=== PATIENT | male | born 1955 | race Caucasian/White ===

== ENCOUNTER 2022-12-31 18:54 | Inpatient (IN) | payer MEDICARE, MEDICAID, SELFPAY ==
[2022-12-31] VITALS (11 sets, daily range): BP systolic 101–134; BP diastolic 50–93; PULSE 57–134; RESP 16–27; TEMP 37.3–39.5; O2SAT 92–97; BMI 30.8; BMI 33.3
--- NOTE | 2022-12-31 18:58 | XR_ITS ---
PROCEDURE INFORMATION: Exam: XR Chest Exam date and time: 12/31/2022 7:34 PM Age: 67 years old Clinical indication: Other: AMS; Additional info: Altered mental status TECHNIQUE: Imaging protocol: Radiologic exam of the chest. Views: 1 view. COMPARISON: No relevant prior studies available. FINDINGS: Lungs: Unremarkable. No consolidation. Pleural spaces: Unremarkable. No pleural effusion. No pneumothorax. Heart/Mediastinum: Unremarkable. No cardiomegaly. Bones/joints: Unremarkable. IMPRESSION: No acute findings.
--- NOTE | 2022-12-31 18:59 | CT_ITS ---
PROCEDURE INFORMATION: Exam: CT Abdomen And Pelvis With Contrast Exam date and time: 12/31/2022 7:45 PM Age: 67 years old Clinical indication: Other: Distension; Additional info: Abdominal distension TECHNIQUE: Imaging protocol: Computed tomography of the abdomen and pelvis with contrast. Radiation optimization: All CT scans at this facility use at least one of these dose optimization techniques: automated exposure control; mA and/or kV adjustment per patient size (includes targeted exams where dose is matched to clinical indication); or iterative reconstruction. Contrast material: ISOVUE; Contrast volume: 75 ml; Contrast route: IV; REPORTING DATA: Count of CT and Cardiac NM exams in prior 12 months: This patient has received 0 known CTs and 0 known cardiac nuclear medicine studies in the 12 months prior to the current study. COMPARISON: CR XR CHEST PORTABLE 12/31/2022 7:34 PM FINDINGS: Lungs: Airspace opacities in the included left lower lobe. Small somewhat nodular opacity in the right middle lobe. Bilateral dependent atelectasis. Liver: Liver is normal. No lesions. Gallbladder and bile ducts: Gallbladder is normal. No calcified stones. No ductal dilatation. Pancreas: Moderately atrophic pancreas. Pancreas is otherwise unremarkable. No ductal dilatation. Spleen: Spleen is normal. Adrenal glands: Adrenal glands are normal. No mass. Kidneys and ureters: Kidneys are normal. No renal stones seen. No hydronephrosis or hydroureter. Stomach and bowel: No evidence of bowel obstruction or acute bowel abnormality. Colonic diverticulosis without evidence of diverticulitis. Appendix: Status post appendectomy. Intraperitoneal space: No free air. No significant fluid collection. Vasculature: No acute abnormality. Aortoiliac atherosclerotic disease. No AAA. Lymph nodes: No enlarged lymph nodes. Urinary bladder: Urinary bladder is unremarkable for degree of distention. Reproductive: Mild prostate enlargement. Bones/joints: No acute osseous abnormality. Postsurgical changes status post posterior spinal fusion from T11 through S1 with discectomy at L4-L5 and L5-S1 with laminectomies. Status post fusion of the SI joints. Advanced DJD of the right hip and mild/moderate DJD of the left hip. Soft tissues: Increased soft tissue density and scattered ill-defined fluid within the posterior soft tissues of the lower thoracic and lumbar spine with no discrete collection. Small fat containing umbilical hernia. IMPRESSION: 1. Opacities in the left lower lobe most compatible with pneumonia. Small somewhat nodular opacity in the right middle lobe may be due to atelectasis versus infection. Consider follow-up CT chest following treatment to assess for resolution and ensure no underlying lung lesion. 2. Colonic diverticulosis. No acute bowel abnormality. 3. Aortoiliac atherosclerotic disease. No AAA. 4. Postsurgical changes of the spine and SI joints as above. Increased soft tissue density and scattered ill-defined fluid within the posterior soft tissues of the lower thoracic and lumbar spine with no discrete collection. 5. Enlarged prostate. 6. Other chronic and incidental findings as above.
--- NOTE | 2022-12-31 19:00 | ECG_ITS ---
APPROVED REPORT Exam: Resting ECG HR:133 bpm ECG Measurements Heart Rate 133 AXES TX 151 P 44 QRSd 92 QRS 24 QT 333 T 58 QTc 411 Conclusion SINUS TACHYCARDIA WITH OCCASIONAL VENTRICULAR PREMATURE COMPLEXES LOW QRS VOLTAGE IN PRECORDIAL LEADS [QRS DEFLECTION < 1.0 mV IN CHEST LEADS] NONSPECIFIC T-WAVE ABNORMALITY ABNORMAL RHYTHM ECG UNCONFIRMED REPORT Electronically signed by : Jet Reynaga MD 01/01/2023 15:01:31
--- NOTE | 2022-12-31 19:07 | HMH.EDGENADL ---
Discharge Plan Disposition Patient Disposition: Still a Patient Prescriptions Prescriptions: No Action alprazolam 1 mg tablet 1 mg PO BIDP PRN (Reason: Anxiety) Label Comments: TAKE 1 TABLET BY MOUTH TWICE DAILY NEEDED. FILL 12/11 potassium chloride 10 mEq tablet extended release 10 meq PO DAILY Label Comments: TAKE 1 TABLET BY MOUTH ONCE A DAY. oxycodone 15 mg tablet 15 mg PO Q6HP PRN (Reason: Breakthrough Pain) Label Comments: TAKE 1 TABLET BY MOUTH EVERY 6 HOURS NEEDED FOR BREAKTHROUGH PAIN. FILL 12/11 tamsulosin 0.4 mg capsule 0.4 mg PO HS Label Comments: TAKE (1) CAPSULE BY MOUTH ONCE A DAY. pantoprazole 40 mg tablet,delayed release (DR/EC) 40 mg PO DAILY Label Comments: TAKE 1 TABLET BY MOUTH ONCE A DAY. promethazine 25 mg tablet 25 mg PO DAILYP PRN (Reason: Nausea) Label Comments: TAKE 1 TABLET BY MOUTH ONCE A DAY NEEDED FOR NAUSEA furosemide 20 mg tablet 20 mg PO DAILY Label Comments: TAKE 1 TABLET BY MOUTH ONCE A DAY. metoprolol succinate 25 mg tablet extended release 24 hr 25 mg PO DAILY Label Comments: TAKE 1 TABLET BY MOUTH ONCE A DAY. albuterol sulfate 90 mcg/actuation HFA aerosol inhaler 2 puff INHALATION Q4-6H PRN (Reason: Breathing Problems) Label Comments: INHALE 2 PUFFS EVERY 4-6 HOURS pregabalin 100 mg capsule 100 mg PO TID Label Comments: TAKE (1) CAPSULE BY MOUTH TWICE DAILY FOR 3 DAYS THEN 1 CAPSULE THREE TIMES A DAY FILL 12/11 diclofenac sodium 1 % gel 1 g TOPICAL NEEDED PRN (Reason: Arthritis) Label Comments: APPLY TO AFFECTED AREAS 2-3 TIMES A DAY NEEDED Eliquis 5 mg tablet 5 mg PO BID Label Comments: TAKE ONE TABLET BY MOUTH 2 TIMES DAILY. oxycodone [OxyContin] 40 mg tablet,oral only,ext.rel.12 hr 40 mg PO BID Label Comments: TAKE 1 TABLET BY MOUTH TWICE DAILY FILL 12/11 Clinical Impressions Clinical Impression: Altered mental status Instructions Patient Instructions: DI for Altered Mental Status Discharge ED Provider: Juan Jose Ortiz General Adult HPI General Chief complaint: Altered Mental Status Stated complaint: AMS Time Seen by Provider: 12/31/22 19:00 History of Present Illness HPI narrative: 67-year-old male presents from home with tachycardia and fever. He says he has had mild cough for the last week has been mildly short of air. His daughter noticed that he was being more confused today, he had been outside working in the garden all day prior to this. He does have mild abdominal distention and abdominal pain. No dysuria or hematuria no diarrhea or nausea or vomiting. Related Data Home Medications Medication Instructions Recorded Confirmed albuterol sulfate 90 mcg/actuation 2 puff inhalation Q4-6H PRN 12/31/22 12/31/22 aerosol inhaler Breathing Problems alprazolam 1 mg tablet 1 mg PO BIDP PRN Anxiety 12/31/22 12/31/22 apixaban 5 mg tablet (Eliquis) 5 mg PO BID Blood thinner 12/31/22 12/31/22 diclofenac sodium 1 % topical gel 1 g topical NEEDED PRN Arthritis 12/31/22 12/31/22 furosemide 20 mg tablet 20 mg PO DAILY Fluid 12/31/22 12/31/22 metoprolol succinate 25 mg 25 mg PO DAILY High blood pressure 12/31/22 12/31/22 tablet,extended release 24 hr oxycodone 15 mg tablet 15 mg PO Q6HP PRN Breakthrough Pain 12/31/22 12/31/22 oxycodone 40 mg tablet,crush 40 mg PO BID Pain 12/31/22 12/31/22 resistant,extended release 12 hr (OxyContin) pantoprazole 40 mg tablet,delayed 40 mg PO DAILY Acid reflux 12/31/22 12/31/22 release potassium chloride 10 mEq 10 meq PO DAILY Supplement 12/31/22 12/31/22 tablet,extended release pregabalin 100 mg capsule 100 mg PO TID Pain 12/31/22 12/31/22 promethazine 25 mg tablet 25 mg PO DAILYP PRN Nausea 12/31/22 12/31/22 tamsulosin 0.4 mg capsule 0.4 mg PO HS Prostate 12/31/22 12/31/22 Allergies Allergy/AdvReac Type Severity Reaction Status Date / Ti
[2022-12-31 19:13] LABS: VBG Base Excess 1.1 mmol/L (-2.4-2.3); VBG Oxygen Saturation 53.4 % (50-70); VBG PCO2 43.1 mmol/L (35-51); VBG PO2 27.1 mmol/L (28-40); VBG Total CO2 27.3 mmol/L (23-27)
[2022-12-31 19:25] LABS: Basophils % 0.3 % (0.1-2.0); Eosinophils # 0.1 K/mm3 (0.0-0.4); Eosinophils % 1.2 % (0.1-12.0); Hematocrit 44.5 % (42.0-52.0); Hemoglobin 14.9 g/dL (14.1-18.0); Lymphocytes # 0.7 K/mm3 (0.7-4.5); Lymphocytes % 6.6 % (10-50); Mean Corpuscular HGB Conc 33.4 g/dL (31.8-35.4); Mean Corpuscular Hemoglobin 30.5 pg (27.0-31.2); Mean Corpuscular Volume 91.3 fl (80-94); Mean Platelet Volume 8.1 fl (7.4-10.4); Monocytes # 0.4 K/mm3 (0.1-1.0); Monocytes % 3.9 % (1.7-9.3); Neutrophils # 9.2 K/mm3 (1.8-7.8); Neutrophils % 88.1 % (37.0-80.0); Platelet Count 282 K/mm3 (142-424); Red Blood Count 4.87 M/mm3 (4.60-6.20); Red Cell Distribution Width 14.4 % (11.5-17.5); White Blood Count 10.4 K/mm3 (4.8-10.8)
[2022-12-31 19:27] LABS: Coronavirus 19, PCR Not Detected (NotDetected); Influenza A, PCR Not Detected (NotDetected); Influenza B, PCR Not Detected (NotDetected)
[2022-12-31 19:27] LABS: MANUAL DIFFERENTIAL MANUAL DIFFERENTIAL (MANUAL DIFF)
[2022-12-31 19:30] LABS: Lipase 95 U/L (23-300)
[2022-12-31 19:31] LABS: Alanine Aminotransferase 38 U/L (12-78); Albumin Level 4.4 g/dl (3.5-5.0); Albumin/Globulin Ratio 1.3 (1.1-1.8); Alkaline Phosphatase 145 U/L (38-126); Anion Gap 19.4 mEq/L (5-15); Aspartate Amino Transferase 43 U/L (17-59); Bilirubin,Total 0.8 mg/dl (0.2-1.3); Blood Urea Nitrogen 15 mg/dl (9-20); Calcium 8.7 mg/dl (8.4-10.2); Carbon Dioxide 27 mmol/L (22.0-30.0); Chloride 95 mmol/L (98-107); Creatinine Clearance Estimated 90 mL/min (50-200); Estimated Glomerular Filt Rate 60 ml/min (>60); GFR (African American) 73 ML/MIN (>60); Globulin 3.3 g/dL (1.3-3.2); Glucose 128 mg/dl (74-100); Magnesium 1.6 mg/dl (1.6-2.3); Potassium 3.4 mmoL/L (3.5-5.1); Sodium 138 mmol/L (136-145); Total Protein,Serum 7.7 g/dl (6.3-8.2)
[2022-12-31 19:35] LABS: Lactic Acid 1.9 mmol/L (0.7-2.1)
--- NOTE | 2022-12-31 19:38 | PC.NURSE ---
Patient to CT
[2022-12-31 19:41] LABS: Eosinophils % 1 % (0-3); Lymphocytes % 15 % (10-50); Monocytes % 4 % (2-9); Neutrophils % 80 % (42-76); Nucleated Red Blood Cells 1; Platelet Estimate Normal; RBC Morphology Normal; Total Cells Counted 100
[2022-12-31 19:47] LABS: Troponin I < 0.01 ng/ml (0.00-0.034)
--- NOTE | 2022-12-31 19:50 | PC.NURSE ---
Back from CT
[2022-12-31 19:57] LABS: Microscopic, Urine URINE MICROSCOPIC (MICROSCOPIC)
[2022-12-31 20:01] LABS: Thyroid Stimulating Hormone 0.45 uIU/mL (0.465-4.68)
--- NOTE | 2022-12-31 20:14 | CT_ITS ---
PROCEDURE INFORMATION: Exam: CT Chest Without Contrast; Diagnostic Exam date and time: 12/31/2022 8:27 PM Age: 67 years old Clinical indication: Other: Sepsis TECHNIQUE: Imaging protocol: Diagnostic computed tomography of the chest without contrast. Radiation optimization: All CT scans at this facility use at least one of these dose optimization techniques: automated exposure control; mA and/or kV adjustment per patient size (includes targeted exams where dose is matched to clinical indication); or iterative reconstruction. REPORTING DATA: Count of CT and Cardiac NM exams in prior 12 months: This patient has received 0 known CTs and 0 known cardiac nuclear medicine studies in the 12 months prior to the current study. COMPARISON: CR XR CHEST PORTABLE 12/31/2022 7:34 PM FINDINGS: Lungs: Respiratory motion. Airspace opacities in the posterior and medial left lower lobe most compatible with pneumonia. Subsegmental/dependent atelectasis in the right lower lobe. Small somewhat nodular opacity in the medial right middle lobe. Small subpleural superior right lower lobe opacity likely reflects atelectasis. Pleural spaces: No pneumothorax. No pleural effusion. Heart: Heart size is normal. No pericardial effusion. Lymph nodes: Mildly enlarged subcarinal lymph node and a few additional upper normal mediastinal lymph nodes. No appreciable hilar adenopathy although evaluation is limited. There are small calcified hilar lymph nodes most compatible with prior granulomatous disease. Vasculature: Mild calcified aortic atherosclerosis with no aneurysm. Left aortic arch with aberrant right subclavian artery. Main pulmonary artery is mildly dilated measuring 3.3 cm in diameter. Diaphragm: Small sliding-type hiatal hernia. Bones/joints: No acute abnormality. Partially imaged posterior spinal fusion of the thoracolumbar spine. Soft tissues: Unremarkable. Other findings: No acute abnormality in the included upper abdomen. IMPRESSION: 1. Airspace opacities in the left lower lobe most compatible with pneumonia. Small somewhat nodular opacity in the medial right middle lobe could represent atelectasis versus infection. Recommend follow-up CT chest following treatment to ensure no underlying lesions. 2. Mild mediastinal adenopathy, likely reactive. This can be reassessed on follow-up imaging. 3. Mild calcified thoracic aortic atherosclerotic disease with no aneurysm. Left aortic arch with aberrant right subclavian artery. Mildly dilated main pulmonary artery suggesting there may be pulmonary arterial hypertension. 4. Small sliding-type hiatal hernia.
--- NOTE | 2022-12-31 20:20 | EXP.HP ---
History of Present Illness *Admission Date: 12/31/22 *Reason for visit:: Chief complaint: Fever *History of present illness: This is a 67-year-old male who presents to [facility] accompanied by his daughter Shanti Jimenez who assists with the history. She reports that her father and herself were working the garden this afternoon and he was doing more work than he typically does with his bad back. He started experiencing fever and nausea and got in the truck to cool off. Shanti reports that he has had a cough for about a week that has not resolved. The patient reports he became nauseous and they decided to go home. At home his nausea crescendoed and he threw up a couple of times. There was no associated diarrhea. He reports some left lower quadrant pain characterized as sharp and piercing and intermittent. He describes a colonoscopy in 2018 that was reported as normal. He reports no associated hematemesis, melena or hematochezia. His daughter reports that after throwing up he started talking out of his head. He became really hot. The patient reported feeling sick to my stomach. He took a Phenergan and it did not improve his symptomatology. He denied headache, seizures, loss of motor or sensory function. He reported to the emergency department for evaluation. In the ER he was tachycardic and tachypneic with fever. His laboratory evaluation identified a white blood cell count of 10.4 with normal hemoglobin and negative lactic acid and normal pH. His LFTs and lipase were normal. His creatinine was 1.2 and his magnesium 1.6. A CT of the abdomen identified diverticulosis but no evidence of diverticulitis. Chest imaging identified left lower lobe and right middle lobe pneumonia. He received IV fluid resuscitation for his sepsis presentation. Blood cultures were acquired and he was started on IV Zosyn and IV vancomycin. Currently he reports that he is tired but feeling better. His daughter Shanti at bedside endorses his improvement. 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 Hypertension Osteoarthritis of spine Paroxysmal atrial fibrillation Surgical History (Updated 12/31/22 @ 21:35 by Stef Barry MD) History of lumbar spinal fusion S/P appendectomy Social History (Updated 12/31/22 @ 19:46 by Juan Jose Ortiz MD) Smoking Status: Former smoker alcohol intake: never current occupational status: unemployed Travel in the last 8 weeks: None Review of Systems Review of Systems Review of systems:: pertinent systems reviewed and negative unless documented below Constitutional Constitutional: Reports chills, Reports fever(s), Denies headache(s), Reports poor appetite, Reports lethargy and Reports weakness Eyes Eyes: Denies loss of vision ENT Ears, Nose, Mouth, and Throat: Denies dizziness, Denies dysphagia and Denies headache(s) *Cardiovascular Cardiovascular: Denies chest pain, Denies chest pain at rest, Reports dyspnea, Reports dyspnea on exertion, Reports irregular heart rhythm and Reports palpitations *Respiratory Respiratory: Reports cough, Reports dyspnea, Reports dyspnea on exertion and Reports wheezing *Gastrointestinal Gastrointestinal: Denies diarrhea, Denies dysphagia, Denies hematochezia, Denies loose stools, Denies melena, Reports nausea and Reports vomiting *Genitourinary Genitourinary: Reports urinary frequency *Musculoskeletal Musculoskeletal: Denies abnormal gait and Reports back pain Integumentary/Breasts Skin/Breast: Denies rash *Neurologic Neurologic: Denies abnormal gait, Denies abnormal movements, Denies abnormal speech, Reports confusion, Denies dizziness, Denies lo
[2022-12-31 20:23] LABS: Appearance,Urine CLEAR (Clear); Bilirubin,Urine Negative (Negative); Blood, Urine TRACE-I (Negative); Color,Urine YELLOW (Yellow); Glucose,Urine (UA) Negative (Negative); Ketones,Urine Negative (Negative); Leukocyte Esterase,Urine Negative (Negative); Nitrate,Urine Negative (Negative); Protein,Urine Negative (Negative); Specific Gravity, Urine 1.015 (1.005-1.030)
--- NOTE | 2022-12-31 20:25 | PC.NURSE ---
Patient back to CT for inpatient CT orders
--- NOTE | 2022-12-31 20:30 | PC.NURSE ---
Attempted to call report, Nurse will call me back
[2022-12-31 20:33] LABS: Creatine Kinase 57 U/L (55-170)
[2022-12-31 20:35] LABS: RBC,Urine Occasional #/hpf (0-3)
--- NOTE | 2022-12-31 20:51 | PC.NURSE ---
Pt arrived to floor via stretcher @ 2044
[2022-12-31 21:01] LABS: Mycoplasma Pneumo IGM (Rapid) Non-Reactive (Non-Reactiv)
[2022-12-31 22:55] LABS: Troponin I < 0.01 ng/ml (0.00-0.034)
[2023-01-01] VITALS (15 sets, daily range): BP systolic 97–134; BP diastolic 53–74; PULSE 54–100; RESP 17–18; TEMP 36.7–37.6; O2SAT 90–96; BMI 33.5
[2023-01-01 01:48] LABS: Troponin I < 0.01 ng/ml (0.00-0.034)
--- NOTE | 2023-01-01 06:22 | ECG_ITS ---
APPROVED REPORT Exam: Resting ECG HR:99 bpm ECG Measurements Heart Rate 99 AXES CO 165 P 55 QRSd 100 QRS 34 QT 346 T 51 QTc 402 Conclusion SINUS RHYTHM WITH OCCASIONAL SUPRAVENTRICULAR PREMATURE COMPLEXES BORDERLINE ECG UNCONFIRMED REPORT Electronically signed by : Jet Reynaga MD 01/01/2023 15:00:23
[2023-01-01 06:48] LABS: Basophils # 0.1 K/mm3 (0-0.2); Basophils % 0.4 % (0.1-2.0); Eosinophils # 0.1 K/mm3 (0.0-0.4); Eosinophils % 0.4 % (0.1-12.0); Hematocrit 39.9 % (42.0-52.0); Hemoglobin 13.5 g/dL (14.1-18.0); Lymphocytes # 1.3 K/mm3 (0.7-4.5); Lymphocytes % 5.2 % (10-50); Mean Corpuscular HGB Conc 33.8 g/dL (31.8-35.4); Mean Corpuscular Hemoglobin 30.6 pg (27.0-31.2); Mean Corpuscular Volume 90.5 fl (80-94); Mean Platelet Volume 8.6 fl (7.4-10.4); Monocytes # 2.3 K/mm3 (0.1-1.0); Monocytes % 9.1 % (1.7-9.3); Neutrophils # 21.9 K/mm3 (1.8-7.8); Neutrophils % 84.9 % (37.0-80.0); Platelet Count 295 K/mm3 (142-424); Red Blood Count 4.41 M/mm3 (4.60-6.20); Red Cell Distribution Width 14.3 % (11.5-17.5); White Blood Count 25.8 K/mm3 (4.8-10.8)
[2023-01-01 06:54] LABS: MANUAL DIFFERENTIAL MANUAL DIFFERENTIAL (MANUAL DIFF)
[2023-01-01 06:56] LABS: Prothrombin Time 12.8 seconds (10.1-12.5)
[2023-01-01 07:14] LABS: Anion Gap 18.3 mEq/L (5-15); Blood Urea Nitrogen 15 mg/dl (9-20); Calcium 8.2 mg/dl (8.4-10.2); Carbon Dioxide 23 mmol/L (22.0-30.0); Chloride 100 mmol/L (98-107); Creatinine Clearance Estimated 107 mL/min (50-200); Estimated Glomerular Filt Rate 84 ml/min (>60); GFR (African American) 101 ML/MIN (>60); Glucose 124 mg/dl (74-100); Potassium 4.3 mmoL/L (3.5-5.1); Sodium 137 mmol/L (136-145)
[2023-01-01 07:30] LABS: Procalcitonin 6.57 ng/mL (0.0-2.0)
--- NOTE | 2023-01-01 07:56 | HMH.PHAINT1 ---
Pharmacy Intervention Comments: HOME MEDICATION LIST VERIFIED USING LIST FROM OUTPATIENT PHARMACY
--- NOTE | 2023-01-01 07:58 | EXP.PHA.CONS ---
Pharmacy Consult Date: 01/01/23 Time: 07:58 Referring provider: DR. BORDEN Reason for Consult:: VANCOMYCIN DOSING Allergies Allergy/AdvReac Type Severity Reaction Status Date / Time NSAIDS (Non-Steroidal Allergy Verified 12/31/22 19:10 Anti-Inflamma quetiapine [From Seroquel] Allergy Verified 12/31/22 19:10 Home Medications Medication Instructions Recorded Confirmed Type albuterol sulfate 90 mcg/actuation 2 puff inhalation Q4-6H PRN 12/31/22 12/31/22 History aerosol inhaler Breathing Problems alprazolam 1 mg tablet 1 mg PO BIDP PRN Anxiety 12/31/22 12/31/22 History apixaban 5 mg tablet (Eliquis) 5 mg PO BID Blood thinner/A FIB 12/31/22 12/31/22 History diclofenac sodium 1 % topical gel 1 g topical NEEDED PRN Arthritis 12/31/22 12/31/22 History furosemide 20 mg tablet 20 mg PO DAILY Fluid 12/31/22 12/31/22 History metoprolol succinate 25 mg 25 mg PO DAILY High blood pressure 12/31/22 12/31/22 History tablet,extended release 24 hr oxycodone 15 mg tablet 15 mg PO Q6HP PRN Breakthrough Pain 12/31/22 12/31/22 History oxycodone 40 mg tablet,crush 40 mg PO BID Pain 12/31/22 12/31/22 History resistant,extended release 12 hr (OxyContin) pantoprazole 40 mg tablet,delayed 40 mg PO DAILY Acid reflux 12/31/22 12/31/22 History release potassium chloride 10 mEq 10 meq PO DAILY Supplement 12/31/22 12/31/22 History tablet,extended release pregabalin 100 mg capsule 100 mg PO TID Pain 12/31/22 12/31/22 History tamsulosin 0.4 mg capsule 0.4 mg PO HS Prostate 12/31/22 12/31/22 History New Prescriptions to Start Prescriptions: Height: 1.8 m Weight: 108.545 kg Laboratory Results:: Laboratory Results - last 24 hr 12/31/22 19:00: VBG pH 7.40, VBG pCO2 43.1, VBG pO2 27.1 L, VBG HCO3 26.0, VBG Total CO2 27.3 H, VBG O2 Saturation 53.4, VBG Base Excess 1.1 05/11/23 19:02: WBC 10.4, RBC 4.87, Hgb 14.9, Hct 44.5, MCV 91.3, MCH 30.5, MCHC 33.4, RDW 14.4, Plt Count 282, MPV 8.1, Neut % (Auto) 88.1 H, Lymph % (Auto) 6.6 L, [place] % (Auto) 3.9, Eos % (Auto) 1.2, Baso % (Auto) 0.3, Neut # (Auto) 9.2 H, Lymph # (Auto) 0.7, [place] # (Auto) 0.4, Eos # (Auto) 0.1, Baso # (Auto) 0.0, Total Counted 100, Neutrophils % (Manual) 80 H, Lymphocytes % (Manual) 15, Monocytes % (Manual) 4, Eosinophils % (Manual) 1, Nucleated RBCs 1, Platelet Estimate Normal, RBC Morphology Normal 12/31/22 19:02: Sodium 138, Potassium 3.4 L, Chloride 95 L, Carbon Dioxide 27, Anion Gap 19.4 H, BUN 15, Creatinine 1.20, Estimated Creat Clear 90, Estimated GFR 60, Est GFR ( Amer) 73, Glucose 128 H, Calcium 8.7, Magnesium 1.6, Total Bilirubin 0.8, AST 43, ALT 38, Alkaline Phosphatase 145 H, Troponin I < 0.01, Total Protein 7.7, Albumin 4.4, Globulin 3.3 H, Albumin/Globulin Ratio 1.3, TSH 0.45 L 12/31/22 19:02: Lipase 95 12/31/22 19:02: Lactate 1.9 12/31/22 19:02: Mycoplasma pneumon IgM Non-reactive 12/31/22 19:02: Total Creatine Kinase 57 12/31/22 19:20: SARS-CoV-2 (PCR) Not detected, Influenza A Untype (PCR) Not detected, Influenza Type B (PCR) Not detected 12/31/22 19:55: Urine Color Yellow, Urine Appearance Clear, Urine pH 7.0, Ur Specific [place] 1.015, Urine Protein Negative, Urine Glucose (UA) Negative, Urine Ketones Negative, Urine Blood Trace-i, Urine Nitrate Negative, Urine Bilirubin Negative, Urine Urobilinogen 1.0, Ur Leukocyte Esterase Negative, Urine RBC Occasional, Urine WBC None, Ur Squamous Epith Cells None, Urine Bacteria None 12/31/22 22:00: Troponin I < 0.01 01/01/23 01:15: Troponin I < 0.01 01/01/23 06:14: WBC 25.8 H* D, RBC 4.41 L, Hgb 13.5 L, Hct 39.9 L, MCV 90.5, MCH 30.6, MCHC 33.8, RDW 14.3, Plt Count 295, MPV 8.6, Neut % (Auto) 84.9 H, Lymph % (Auto) 5.2 L, [place] % (Auto) 9.1, Eos % (Auto) 0.4, Baso % (Auto) 0.4, Neut # (Auto) 21.9 H, Lymph # (Auto) 1.3, [place] # (Auto) 2.3 H, Eos # (Auto) 0.1, Baso # (Auto) 0.1 01/01/23 06:14: PT 12.8 H, INR 1.20 H 01/01/23 06:14: Sodium 137, Potassium 4.3 D, Chloride 100, Carbon Dioxide 23, Anion Gap 18.3 H, BUN 15,
[2023-01-01 08:00] LABS: Lymphocytes % 7 % (10-50); Monocytes % 6 % (2-9); Neutrophils % 87 % (42-76); Platelet Estimate Normal; RBC Morphology Normal; Total Cells Counted 100
--- NOTE | 2023-01-01 11:57 | PC.NURSE ---
HOME MEDS SENT TO PHARM, X2 IN [facility], THE REMAINING MEDS LOCKED IN [facility] PTS ROOM PER PTS REQUESTED. COUNTED AND VERIFIED MEDS WITH [facility].
--- NOTE | 2023-01-01 14:52 | EXP.PN ---
Subjective *Date: 01/01/23 *Time: 14:52 Interval history: Date of service January 01, 2023 The patient is accompanied by his daughter and I am accompanied by nursing staff. He is inquiring about discharge home. Nursing staff report that he is now afebrile with a Tmax of 103 through the pitch flaker hours. His heart rates have improved and are normal and his blood pressure is stable. He is saturating appropriately on room air. We have reviewed, discussed and I have personally interpreted his morning labs and imaging as follows: A CBC with a leukocytosis WBC of 26,000, stable hemoglobin and hematocrit with normal platelet count. His electrolytes are normal and his creatinine is 0.9. His glucose trend is under 150. His procalcitonin is elevated. A CT of the chest identifies left lower lobe pneumonia and right middle lobe infiltrate. Exam Data for Last 24 hours Vital signs and Labs for Last 24 Hours: Temp Pulse Resp BP Pulse Ox 98.9 F 77 18 97/57 L 96 01/01/23 11:36 01/01/23 12:00 01/01/23 11:36 01/01/23 11:36 01/01/23 11:36 Laboratory Results - last 24 hr 12/31/22 19:00: VBG pH 7.40, VBG pCO2 43.1, VBG pO2 27.1 L, VBG HCO3 26.0, VBG Total CO2 27.3 H, VBG O2 Saturation 53.4, VBG Base Excess 1.1 12/31/22 19:02: WBC 10.4, RBC 4.87, Hgb 14.9, Hct 44.5, MCV 91.3, MCH 30.5, MCHC 33.4, RDW 14.4, Plt Count 282, MPV 8.1, Neut % (Auto) 88.1 H, Lymph % (Auto) 6.6 L, [place] % (Auto) 3.9, Eos % (Auto) 1.2, Baso % (Auto) 0.3, Neut # (Auto) 9.2 H, Lymph # (Auto) 0.7, [place] # (Auto) 0.4, Eos # (Auto) 0.1, Baso # (Auto) 0.0, Total Counted 100, Neutrophils % (Manual) 80 H, Lymphocytes % (Manual) 15, Monocytes % (Manual) 4, Eosinophils % (Manual) 1, Nucleated RBCs 1, Platelet Estimate Normal, RBC Morphology Normal 12/31/22 19:02: Sodium 138, Potassium 3.4 L, Chloride 95 L, Carbon Dioxide 27, Anion Gap 19.4 H, BUN 15, Creatinine 1.20, Estimated Creat Clear 90, Estimated GFR 60, Est GFR ( Amer) 73, Glucose 128 H, Calcium 8.7, Magnesium 1.6, Total Bilirubin 0.8, AST 43, ALT 38, Alkaline Phosphatase 145 H, Troponin I < 0.01, Total Protein 7.7, Albumin 4.4, Globulin 3.3 H, Albumin/Globulin Ratio 1.3, TSH 0.45 L 12/31/22 19:02: Lipase 95 12/31/22 19:02: Lactate 1.9 12/31/22 19:02: Mycoplasma pneumon IgM Non-reactive 12/31/22 19:02: Total Creatine Kinase 57 12/31/22 19:20: SARS-CoV-2 (PCR) Not detected, Influenza A Untype (PCR) Not detected, Influenza Type B (PCR) Not detected 12/31/22 19:55: Urine Color Yellow, Urine Appearance Clear, Urine pH 7.0, Ur Specific [place] 1.015, Urine Protein Negative, Urine Glucose (UA) Negative, Urine Ketones Negative, Urine Blood Trace-i, Urine Nitrate Negative, Urine Bilirubin Negative, Urine Urobilinogen 1.0, Ur Leukocyte Esterase Negative, Urine RBC Occasional, Urine WBC None, Ur Squamous Epith Cells None, Urine Bacteria None 12/31/22 22:00: Troponin I < 0.01 01/01/23 01:15: Troponin I < 0.01 01/01/23 06:14: WBC 25.8 H* D, RBC 4.41 L, Hgb 13.5 L, Hct 39.9 L, MCV 90.5, MCH 30.6, MCHC 33.8, RDW 14.3, Plt Count 295, MPV 8.6, Neut % (Auto) 84.9 H, Lymph % (Auto) 5.2 L, [place] % (Auto) 9.1, Eos % (Auto) 0.4, Baso % (Auto) 0.4, Neut # (Auto) 21.9 H, Lymph # (Auto) 1.3, [place] # (Auto) 2.3 H, Eos # (Auto) 0.1, Baso # (Auto) 0.1, Total Counted 100, Neutrophils % (Manual) 87 H, Lymphocytes % (Manual) 7 L, Monocytes % (Manual) 6, Platelet Estimate Normal, RBC Morphology Normal 01/01/23 06:14: PT 12.8 H, INR 1.20 H 01/01/23 06:14: Sodium 137, Potassium 4.3 D, Chloride 100, Carbon Dioxide 23, Anion Gap 18.3 H, BUN 15, Creatinine 0.90 D, Estimated Creat Clear 107, Estimated GFR 84, Est GFR ( Amer) 101 D, Glucose 124 H, Calcium 8.2 L, Magnesium 2.0 D, Procalcitonin 6.57 H I & O for Last 24 hours: Intake & Output 12/29/22 12/30/22 12/31/22 01/01/23 23:59 23:59 23:59 23:59 Intake Total 3500 / 3500 969 / 969 Output Total 1005 / 1005 300 / 300 Balance 2495 / 2495 669 / 669 Weight 108.545 kg 108.54 kg Microbiology R
[2023-01-02] VITALS (12 sets, daily range): BP systolic 100–126; BP diastolic 55–69; PULSE 70–85; RESP 17–19; TEMP 36.7–36.9; O2SAT 90–97; BMI 34.0
--- NOTE | 2023-01-02 04:22 | PC.NURSE ---
Patient A&Ox4; LCTA, BM 01/10/23, has had scheduled pain medication & 1 dose of his personal pain medication. Family at bedside; ambulates to bathroom independently. Will need Vanc trough this AM prior to morning dose.
[2023-01-02 07:40] LABS: Basophils % 0.1 % (0.1-2.0); Eosinophils % 0.2 % (0.1-12.0); Hematocrit 34.6 % (42.0-52.0); Hemoglobin 11.6 g/dL (14.1-18.0); Lymphocytes # 1.4 K/mm3 (0.7-4.5); Lymphocytes % 8.1 % (10-50); Mean Corpuscular HGB Conc 33.5 g/dL (31.8-35.4); Mean Corpuscular Hemoglobin 30.5 pg (27.0-31.2); Mean Platelet Volume 8.5 fl (7.4-10.4); Monocytes # 1.2 K/mm3 (0.1-1.0); Monocytes % 6.7 % (1.7-9.3); Neutrophils # 14.6 K/mm3 (1.8-7.8); Neutrophils % 84.8 % (37.0-80.0); Platelet Count 248 K/mm3 (142-424); Red Cell Distribution Width 14.5 % (11.5-17.5); White Blood Count 17.2 K/mm3 (4.8-10.8)
[2023-01-02 07:46] LABS: Anion Gap 16.4 mEq/L (5-15); Blood Urea Nitrogen 11 mg/dl (9-20); Calcium 8.1 mg/dl (8.4-10.2); Carbon Dioxide 24 mmol/L (22.0-30.0); Chloride 102 mmol/L (98-107); Creatinine Clearance Estimated 109 mL/min (50-200); Estimated Glomerular Filt Rate 96 ml/min (>60); GFR (African American) 116 ML/MIN (>60); Glucose 107 mg/dl (74-100); Potassium 3.4 mmoL/L (3.5-5.1); Sodium 139 mmol/L (136-145)
[2023-01-02 08:05] LABS: MANUAL DIFFERENTIAL MANUAL DIFFERENTIAL (MANUAL DIFF)
[2023-01-02 09:15] LABS: Lymphocytes % 8 % (10-50); Monocytes % 5 % (2-9); Neutrophils % 87 % (42-76); Total Cells Counted 100
[2023-01-02 09:16] LABS: Platelet Estimate Normal; RBC Morphology Normal
--- NOTE | 2023-01-02 09:37 | EXP.PN ---
Subjective *Date: 01/02/23 *Time: 09:37 Interval history: Date of service January 02, 2023 The patient has identified improvement and reports no acute events overnight. Nursing staff report that he remains afebrile with stable heart rates and blood pressures and saturating appropriately on room air. He is tolerating his IV antibiotic with no adverse events. His morning labs have been reviewed, discussed and I have personally interpreted as follows: Blood cultures pending, CBC with improved leukocytoses, WBC 17 K, stable hemoglobin and hematocrit. His electrolytes are stable with a low potassium which is being replaced and a normal creatinine. Exam Data for Last 24 hours Vital signs and Labs for Last 24 Hours: Temp Pulse Resp BP Pulse Ox 98.5 F 80 17 111/55 L 94 L 01/02/23 07:53 01/02/23 08:00 01/02/23 07:53 01/02/23 07:53 01/02/23 08:00 Laboratory Results - last 24 hr 01/02/23 06:59: WBC 17.2 H D, RBC 3.80 L, Hgb 11.6 L, Hct 34.6 L, MCV 91.0, MCH 30.5, MCHC 33.5, RDW 14.5, Plt Count 248, MPV 8.5, Neut % (Auto) 84.8 H, Lymph % (Auto) 8.1 L, [place] % (Auto) 6.7, Eos % (Auto) 0.2, Baso % (Auto) 0.1, Neut # (Auto) 14.6 H, Lymph # (Auto) 1.4, [place] # (Auto) 1.2 H, Eos # (Auto) 0.0, Baso # (Auto) 0.0, Total Counted 100, Neutrophils % (Manual) 87 H, Lymphocytes % (Manual) 8 L, Monocytes % (Manual) 5, Platelet Estimate Normal, RBC Morphology Normal 01/02/23 06:59: Sodium 139, Potassium 3.4 L D, Chloride 102, Carbon Dioxide 24, Anion Gap 16.4 H, BUN 11 D, Creatinine 0.80, Estimated Creat Clear 109, Estimated GFR 96, Est GFR ( Amer) 116, Glucose 107 H, Calcium 8.1 L 01/02/23 07:00: Vancomycin Trough 17.0 H I & O for Last 24 hours: Intake & Output 12/30/22 12/31/22 01/01/23 01/02/23 23:59 23:59 23:59 23:59 Intake Total 3500 / 3500 1209 / 1209 120 / 120 Output Total 1005 / 1005 300 / 300 900 / 900 Balance 2495 / 2495 909 / 909 -780 / -780 Weight 108.545 kg 108.54 kg 110.45 kg Microbiology Reports for the Last 24 Hours: Microbiology 12/31/22 08:39 Sputum - Expectorated Sputum Gram Stain - Final 12/31/22 08:39 Sputum - Expectorated Sputum Sputum Culture - Preliminary Constitutional Constitutional: no acute distress *Routine HEENT Exam Head: Present normocephalic Eye: Present EOMI and PERRL ENT: Present mucous membranes moist *Routine Neck Exam Neck: Present supple; Absent lymphadenopathy *Routine Respiratory Exam Respiratory: Present rhonchi, crackles, normal respiratory effort and symmetric chest movement *Routine Cardiovascular Exam Cardiovascular: Present RRR *Routine Abdominal Exam Abdominal: Present soft and normoactive bowel sounds; Absent tenderness *Routine Extremities Exam Extremities: Absent cyanosis, clubbing or edema *Routine Skin Exam Skin: Present warm; Absent rash *Routine Neurological Exam Neurological: Present alert and oriented X3 Assessment and Plan *Assessment and plan (1) Sepsis: Status: Acute Category: Medical Code(s): A41.9 - Sepsis, unspecified organism (2) Acute on chronic respiratory failure with hypoxia: Status: Acute Category: Medical Code(s): J96.21 - Acute and chronic respiratory failure with hypoxia (3) Left lower lobe pneumonia: Status: Acute Category: Medical Code(s): J18.9 - Pneumonia, unspecified organism (4) Paroxysmal atrial fibrillation: Status: Acute Category: Medical Code(s): I48.0 - Paroxysmal atrial fibrillation (5) Chronic pain: Status: Acute Category: Medical Code(s): G89.29 - Other chronic pain Plan This is a 67-year-old male who presents to the ED with several days of cough and 24 hours of fever, chills and identified with sepsis in the ED with imaging confirming pneumonia. Problems addressed are as follows: Sepsis, POA Tachycardia, tachypnea, fever, source of infection on imaging IV fluid resuscitation with normal lactic acid in ED Blood
--- NOTE | 2023-01-02 11:01 | P.CONPHA_ITS ---
Pharmacy Consult Date: 01/02/23 Time: 11:01 Referring provider: DR. BORDEN Reason for Consult:: VANCOMYCIN TROUGH LEVEL Allergies Allergy/AdvReac Type Severity Reaction Status Date / Time NSAIDS (Non-Steroidal Allergy Verified 12/31/22 19:10 Anti-Inflamma quetiapine [From Seroquel] Allergy Verified 12/31/22 19:10 Home Medications Medication Instructions Recorded Confirmed Type albuterol sulfate 90 mcg/actuation 2 puff inhalation Q4-6H PRN 12/31/22 12/31/22 History aerosol inhaler Breathing Problems alprazolam 1 mg tablet 1 mg PO BIDP PRN Anxiety 12/31/22 12/31/22 History apixaban 5 mg tablet (Eliquis) 5 mg PO BID Blood thinner/A FIB 12/31/22 12/31/22 History diclofenac sodium 1 % topical gel 1 g topical NEEDED PRN Arthritis 12/31/22 12/31/22 History furosemide 20 mg tablet 20 mg PO DAILY Fluid 12/31/22 12/31/22 History metoprolol succinate 25 mg 25 mg PO DAILY High blood pressure 12/31/22 12/31/22 History tablet,extended release 24 hr oxycodone 15 mg tablet 15 mg PO Q6HP PRN Breakthrough Pain 12/31/22 12/31/22 History oxycodone 40 mg tablet,crush 40 mg PO BID Pain 12/31/22 12/31/22 History resistant,extended release 12 hr (OxyContin) pantoprazole 40 mg tablet,delayed 40 mg PO DAILY Acid reflux 12/31/22 12/31/22 History release potassium chloride 10 mEq 10 meq PO DAILY Supplement 12/31/22 12/31/22 History tablet,extended release pregabalin 100 mg capsule 100 mg PO DAILY Pain 12/31/22 01/01/23 History tamsulosin 0.4 mg capsule 0.4 mg PO HS Prostate 12/31/22 12/31/22 History New Prescriptions to Start Prescriptions: Height: 1.8 m Weight: 110.45 kg Laboratory Results:: Laboratory Results - last 24 hr 01/02/23 06:59: WBC 17.2 H D, RBC 3.80 L, Hgb 11.6 L, Hct 34.6 L, MCV 91.0, MCH 30.5, MCHC 33.5, RDW 14.5, Plt Count 248, MPV 8.5, Neut % (Auto) 84.8 H, Lymph % (Auto) 8.1 L, [place] % (Auto) 6.7, Eos % (Auto) 0.2, Baso % (Auto) 0.1, Neut # (Auto) 14.6 H, Lymph # (Auto) 1.4, [place] # (Auto) 1.2 H, Eos # (Auto) 0.0, Baso # (Auto) 0.0, Total Counted 100, Neutrophils % (Manual) 87 H, Lymphocytes % (Manual) 8 L, Monocytes % (Manual) 5, Platelet Estimate Normal, RBC Morphology Normal 01/02/23 06:59: Sodium 139, Potassium 3.4 L D, Chloride 102, Carbon Dioxide 24, Anion Gap 16.4 H, BUN 11 D, Creatinine 0.80, Estimated Creat Clear 109, Estimated GFR 96, Est GFR ( Amer) 116, Glucose 107 H, Calcium 8.1 L 01/02/23 07:00: Vancomycin Trough 17.0 H Medical History: Medical History (Updated 12/31/22 @ 21:42 by Stef Borden MD) (HFpEF) heart failure with preserved ejection fraction BMI 33.0-33.9,adult BPH (benign prostatic hyperplasia) Chronic pain Chronic, continuous use of opioids COPD (chronic obstructive pulmonary disease) 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 PHARMACY WILL CONTINUE TO MONITOR. -EAMON MACARIO PHARMD
[2023-01-02 13:01] LABS: Vancomycin,Peak 32.9 ug/ml (11-39)
--- NOTE | 2023-01-02 16:38 | PC.NURSE ---
pumps cleared for multiple shifts
--- NOTE | 2023-01-02 17:29 | PC.NURSE ---
pt alert and oriented this shift but unable to recall situation. pt rested in bed most of the day but did sit up while washing up. LS clear. abdomen soft, nontender, bs active. pt medicated per MAR for chronic pain.
[2023-01-03] VITALS (19 sets, daily range): BP systolic 103–138; BP diastolic 51–89; PULSE 73–152; RESP 13–20; TEMP 36.6–37.1; O2SAT 92–98; BMI 34.0
--- NOTE | 2023-01-03 00:05 | ECG_ITS ---
APPROVED REPORT Exam: Resting ECG HR:140 bpm ECG Measurements Heart Rate 140 AXES QRSd 96 QRS 26 QT 288 T 37 QTc 369 Conclusion ATRIAL FIBRILLATION WITH RAPID VENTRICULAR RESPONSE MODERATE ST DEPRESSION [0.05+ mV ST DEPRESSION] ABNORMAL ECG UNCONFIRMED REPORT Electronically signed by : Jet Reynaga MD 01/03/2023 08:01:05
--- NOTE | 2023-01-03 00:42 | PC.NURSE ---
25mg Diltiazem IV bolus given at 0040 Diltiazem gtt started at 0042 at 5mg/hr
--- NOTE | 2023-01-03 00:47 | PC.NURSE ---
WHEN TECH WENT IN TO GET MIDNIGHT VITAL SIGNS THE ELECTRONIC SERVICE TECHNICIAN CALL THIS RN TO NOTIFY ME THAT PT'S HEART RATE WAS IN THE 140'S AND SUSTAINING. PT VITALS WERE STABLE OTHER THAN HEART RATE. PT'S ONLY COMPLAINT IS HIS CHRONIC LOW BACK PAIN AND CHEST PAIN WITH DEEP INSPIRATION AND WHEN HIS CHEST IS PRESSED ON. RT NOTIFIED PT NEEDED AN EKG. EKG READ A-FIB W/RVR. EMRIC NOTIFIED. NEW ORDER FOR DILTIAZEM DRIP AND TROPONIN SERIES. STATED THAT IF SECOND TROPONIN CAME BACK NEGATIVE THAT THE THIRD TROPONIN COULD BE CANCELED. PT MOVED TO ROOM 217 AND REPORT WAS GIVEN TO VIRGINIE GARDNER RN AT 0045.
[2023-01-03 01:25] LABS: Troponin I < 0.01 ng/ml (0.00-0.034)
--- NOTE | 2023-01-03 02:38 | PC.NURSE ---
HR sustaining 110-130, Dilt gtt titrated up to 10mg/hr
[2023-01-03 04:08] LABS: Troponin I < 0.01 ng/ml (0.00-0.034)
--- NOTE | 2023-01-03 05:32 | PC.NURSE ---
Pt remains in Afib with HR 75-100. All other VS have remained stable. Diltiazem continues to infuse at 10mg/hr. Pt has c/o chronic back pain and required his PRN pain medication 1x t/o shift. No other c/o voiced to staff.
[2023-01-03 07:20] LABS: Basophils % 0.2 % (0.1-2.0); Eosinophils # 0.1 K/mm3 (0.0-0.4); Eosinophils % 0.7 % (0.1-12.0); Hemoglobin 11.5 g/dL (14.1-18.0); Lymphocytes # 1.5 K/mm3 (0.7-4.5); Lymphocytes % 13.7 % (10-50); Mean Corpuscular Hemoglobin 30.6 pg (27.0-31.2); Mean Corpuscular Volume 92.6 fl (80-94); Mean Platelet Volume 8.3 fl (7.4-10.4); Monocytes # 0.6 K/mm3 (0.1-1.0); Monocytes % 5.4 % (1.7-9.3); Neutrophils % 80.1 % (37.0-80.0); Platelet Count 258 K/mm3 (142-424); Red Blood Count 3.78 M/mm3 (4.60-6.20); Red Cell Distribution Width 14.5 % (11.5-17.5); White Blood Count 11.2 K/mm3 (4.8-10.8)
[2023-01-03 07:23] LABS: Blood Urea Nitrogen 8 mg/dl (9-20); Carbon Dioxide 21 mmol/L (22.0-30.0); Creatinine Clearance Estimated 109 mL/min (50-200); Estimated Glomerular Filt Rate 112 ml/min (>60); GFR (African American) 135 ML/MIN (>60); Glucose 107 mg/dl (74-100); Potassium 3.7 mmoL/L (3.5-5.1); Sodium 138 mmol/L (136-145)
[2023-01-03 08:49] LABS: Anion Gap 15.7 mEq/L (5-15); Chloride 105 mmol/L (98-107)
--- NOTE | 2023-01-03 10:00 | PC.NURSE ---
1000- HR 78 diltiazem gtt decreased to 5mg/hr.
--- NOTE | 2023-01-03 11:58 | EXP.PN ---
Subjective *Date: 01/03/23 *Time: 11:58 Interval history: Date of service January 03, 2023 The patient reports that his chest palpitations have improved. He denies retrosternal chest pain or dyspnea. He is inquiring about ambulating. Nursing staff report that he remains afebrile with improved heart rates and stable blood pressures. He is saturating appropriately on room air. He went into A-fib with RVR through the labor arbitrator hours and he has responded to IV diltiazem. He is currently on factor Xa inhibitor therapy for anticoagulation. We have reviewed, discussed and I have personally interpreted his morning labs as follows: A CBC with an improved white blood cell count down to 11.2, hemoglobin 11.5, hematocrit 35 platelet count 258. Electrolytes are normal with a BUN of 8 and creatinine 0.7. His glucose trend is under 125. His procalcitonin has normalized. Exam Data for Last 24 hours Vital signs and Labs for Last 24 Hours: Temp Pulse Resp BP Pulse Ox 97.8 F 78 18 111/55 L 97 01/03/23 11:30 01/03/23 10:00 01/03/23 10:00 01/03/23 10:00 01/03/23 10:00 Laboratory Results - last 24 hr 01/02/23 12:12: Vancomycin Peak 32.9 01/03/23 00:45: Troponin I < 0.01 01/03/23 03:32: Troponin I < 0.01 01/03/23 06:38: WBC 11.2 H D, RBC 3.78 L, Hgb 11.5 L, Hct 35.0 L, MCV 92.6, MCH 30.6, MCHC 33.0, RDW 14.5, Plt Count 258, MPV 8.3, Neut % (Auto) 80.1 H, Lymph % (Auto) 13.7, [place] % (Auto) 5.4, Eos % (Auto) 0.7, Baso % (Auto) 0.2, Neut # (Auto) 9.0 H, Lymph # (Auto) 1.5, [place] # (Auto) 0.6, Eos # (Auto) 0.1, Baso # (Auto) 0.0 01/03/23 06:38: Sodium 138, Potassium 3.7, Chloride 105, Carbon Dioxide 21 L, Anion Gap 15.7 H, BUN 8 L D, Creatinine 0.70, Estimated Creat Clear 109, Estimated GFR 112, Est GFR ( Amer) 135, Glucose 107 H, Calcium 8.0 L, Procalcitonin 1.40 I & O for Last 24 hours: Intake & Output 12/31/22 01/01/23 01/02/23 01/03/23 23:59 23:59 23:59 23:59 Intake Total 3500 / 3500 1209 / 1209 3000 / 3000 1525 / 1525 Output Total 1005 / 1005 300 / 300 1850 / 2350 2400 / 2400 Balance 2495 / 2495 909 / 909 1150 / 650 -875 / -875 Weight 108.545 kg 108.54 kg 110.45 kg 110.087 kg Microbiology Reports for the Last 24 Hours: Microbiology 12/31/22 08:39 Sputum - Expectorated Sputum Gram Stain - Final 12/31/22 08:39 Sputum - Expectorated Sputum Sputum Culture - Final Normal Respiratory Shelia 12/31/22 22:05 Blood Blood Culture - Preliminary NO GROWTH AFTER 48 HOURS 12/31/22 22:00 Blood Blood Culture - Preliminary NO GROWTH AFTER 48 HOURS 12/31/22 19:16 Blood Blood Culture - Preliminary NO GROWTH AFTER 48 HOURS 12/31/22 19:02 Blood Blood Culture - Preliminary NO GROWTH AFTER 48 HOURS Constitutional Constitutional: no acute distress *Routine HEENT Exam Head: Present normocephalic Eye: Present EOMI and PERRL ENT: Present mucous membranes moist *Routine Neck Exam Neck: Present supple; Absent lymphadenopathy *Routine Respiratory Exam Respiratory: Present rhonchi, normal respiratory effort and symmetric chest movement *Routine Cardiovascular Exam Cardiovascular: Present RRR *Routine Abdominal Exam Abdominal: Present soft and normoactive bowel sounds; Absent tenderness *Routine Extremities Exam Extremities: Absent cyanosis, clubbing or edema *Routine Skin Exam Skin: Present warm; Absent rash *Routine Neurological Exam Neurological: Present alert and oriented X3 Assessment and Plan *Assessment and plan (1) Sepsis: Status: Acute Category: Medical Code(s): A41.9 - Sepsis, unspecified organism (2) Acute on chronic respiratory failure with hypoxia: Status: Acute Category: Medical Code(s): J96.21 - Acute and chronic respiratory failure with hypoxia (3) Left lower lobe pneumonia: Status: Acute Category: Medic
--- NOTE | 2023-01-03 20:34 | PC.NURSE ---
start of shift - dilt gtt running at 15mg/hr 0820 HR 70-85, titrated dilt gtt down to 10mg/hr
--- NOTE | 2023-01-03 21:46 | PC.NURSE ---
Pt Hr sustaining 70-80, Dilt gtt titrated down to 5mg/hr
[2023-01-04] VITALS (12 sets, daily range): BP systolic 110–153; BP diastolic 55–91; PULSE 70–103; RESP 13–20; TEMP 36.9–37.1; O2SAT 92–100; BMI 34.0
--- NOTE | 2023-01-04 03:53 | PC.NURSE ---
HR sustaining 95-115, Dilt gtt titrated up to 10mg/hr at this time.
[2023-01-04 06:37] LABS: Basophils % 0.5 % (0.1-2.0); Eosinophils # 0.1 K/mm3 (0.0-0.4); Eosinophils % 1.2 % (0.1-12.0); Hematocrit 37.8 % (42.0-52.0); Hemoglobin 12.5 g/dL (14.1-18.0); Lymphocytes # 1.8 K/mm3 (0.7-4.5); Lymphocytes % 21.1 % (10-50); Mean Corpuscular Hemoglobin 30.4 pg (27.0-31.2); Mean Corpuscular Volume 92.2 fl (80-94); Mean Platelet Volume 8.4 fl (7.4-10.4); Monocytes # 0.5 K/mm3 (0.1-1.0); Monocytes % 5.9 % (1.7-9.3); Neutrophils # 6.2 K/mm3 (1.8-7.8); Neutrophils % 71.3 % (37.0-80.0); Platelet Count 291 K/mm3 (142-424); Red Cell Distribution Width 14.5 % (11.5-17.5); White Blood Count 8.7 K/mm3 (4.8-10.8)
--- NOTE | 2023-01-04 06:59 | PC.NURSE ---
Dilt gtt continues at 10mg/hr. HR is maintaining 85-100. Pt c/o chronic lower pain and required PRN pain medication 1x tr/o shift. Pt using urinal independently. Call light within reach.
[2023-01-04 08:00] LABS: Free Thyroxine Index 4.2 ug/dL (5.93-13.13); T4 (Thyroxine) 10.7 ug/dl (5.53-11.0); Triiodothryronine (T3) Uptake 39 % (23.5-40.5)
[2023-01-04 08:14] LABS: Thyroid Stimulating Hormone 2.41 uIU/mL (0.465-4.68)
--- NOTE | 2023-01-04 08:29 | EXP.CARD.CON ---
History of Present Illness History of Present Illness Consult date: 01/04/23 Requesting physician: Stef Barry Consult reason: atrial fibrillation Chief complaint: Palpitations, A. fib Additional Medical History:: 1. Paroxysmal atrial fibrillation A. History of Eliquis use since late 2021 B. Recurrent A. fib, 12/2022 in setting of pneumonia. 2. History of tobacco use, discontinued about 2005 A. Smoked up to 5 packs/day over the course of 40 years (200 pack year history) B. COPD 3. Hypertension 4. Hyperlipidemia 5. Hospitalized for sepsis with acute on chronic respiratory failure with hypoxia and bilateral pneumonia, 12/31/2022 6. HFpEF Per records A. HFrEF (EF 35-50%) on echo, 01/04/2023 with LA size at about 4.5 cm with no significant valve disease. 7. History of chronic back pain with lumbar spinal fusion A. Prior indwelling pain pump, removed about 15 years ago History of present illness: This is a 67-year-old male who presents to [facility] accompanied by his daughter Shanti Jimenez who assists with the history.? She reports that her father and herself were working the garden this afternoon and he was doing more work than he typically does with his bad back.? He started experiencing fever and nausea and got in the truck to cool off. ? Shanti reports that he has had a cough for about a week that has not resolved.? The patient reports he became nauseous and they decided to go home.? At home his nausea crescendoed and he threw up a couple of times.? There was no associated diarrhea.? He reports some left lower quadrant pain characterized as sharp and piercing and intermittent.? He describes a colonoscopy in 2018 that was reported as normal.? He reports no associated hematemesis, melena or hematochezia.? His daughter reports that after throwing up he started talking out of his head. ? He became really hot. ? The patient reported feeling sick to my stomach. ? He took a Phenergan and it did not improve his symptomatology.? He denied headache, seizures, loss of motor or sensory function.? He reported to the emergency department for evaluation.? In the ER he was tachycardic and tachypneic with fever.? His laboratory evaluation identified a white blood cell count of 10.4 with normal hemoglobin and negative lactic acid and normal pH.? His LFTs and lipase were normal.? His creatinine was 1.2 and his magnesium 1.6.? A CT of the abdomen identified diverticulosis but no evidence of diverticulitis.? Chest imaging identified left lower lobe and right middle lobe pneumonia.? He received IV fluid resuscitation for his sepsis presentation.? Blood cultures were acquired and he was started on IV Zosyn and IV vancomycin.? Currently he reports that he is tired but feeling better.? His daughter Shanti at bedside endorses his improvement. The above per Dr. Barry Patient developed recurrent atrial fibrillation over the weekend with some improvement with addition of diltiazem IV in addition to oral metoprolol. Cardiology has been consulted for evaluation and recommendations. Echocardiogram this morning preliminary shows a range of his ejection fraction between 35-50% depending on whether he is in sinus rhythm or atrial fibrillation. Left atrial size is estimated at 4-1/2 cm with no significant valvular heart disease. He relates a similar episode of atrial fibrillation several months ago that converted back to normal sinus rhythm with medications. He has been on Eliquis since then. He denies any bleeding issues. Current heart rate during my exam is in the 100-120 bpm range [facility] Disclaimer: The information contained in this section may have been updated after the patient was seen, as this information can be updated by other users. Medical History (Updated 01/04/23 @ 08:37 by JENNIFER Russo) (HFpEF) heart failure with preserved ejection fraction BMI 33.0-33.9,adult BPH (benign prostatic hyperplasia) Chronic pain Chronic, continuous use of opioids
--- NOTE | 2023-01-04 08:46 | EXP.PHA.PN ---
Subjective *Date: 01/04/23 *Time: 08:46 Medical Exam Vital signs and Labs for Last 24 Hours: Vital Signs Temp Pulse Pulse Resp BP Pulse Ox 01/04/23 08:00 95 H 95 01/04/23 08:00 103 H 20 124/65 95 01/04/23 07:49 98.5 F 01/04/23 06:00 76 13 114/68 100 01/04/23 06:15 74 01/04/23 06:15 80 01/04/23 06:15 95 01/04/23 04:00 90 01/04/23 04:00 98.6 F 85 20 117/58 L 94 L 01/04/23 02:38 93 H 94 L 01/03/23 20:00 89 95 01/04/23 02:00 88 17 120/77 95 01/04/23 00:00 90 01/04/23 00:00 98.7 F 86 15 110/55 L 92 L 01/03/23 22:00 86 15 120/74 92 L 01/03/23 20:00 80 01/03/23 20:00 98.7 F 77 17 104/63 L 95 01/03/23 18:00 87 18 122/69 94 L 01/03/23 16:00 112 H 01/03/23 16:00 73 18 105/60 L 98 01/03/23 15:55 87 01/03/23 15:42 98.1 F 01/03/23 12:00 110 H 01/03/23 12:00 84 18 138/65 98 01/03/23 11:30 97.8 F 01/03/23 10:00 78 18 111/55 L 97 Intake and Output 01/03/23 01/04/23 01/04/23 23:59 07:59 15:59 Intake Total 293 / 3437 605 / 605 Output Total 1030 / 4130 2019 Balance -737 / -693 -1415 / -1415 Intake: Intake, Oral Amount 240 / 720 Intake, Total IV Amount 53 / 2717 605 / 605 Cefepime HCl 2 gm In 0.9 % 200 / 200 Sodium Chloride 100 ml @ 200 mls/hr IV Q8H COUNTS INCLUDE 234 BEDS AT THE [facility] Rx#:[id number] Vancomycin/Water For Inj (Peg) 350 / 350 1.75 gm In 350 ml @ 175 mls/hr IV Q12H [facility]IL[facility] Rx#:[id number] dilTIAZem HCL 100 mg In 0.9 % 53 / 168 55 / 55 Sodium Chloride 100 ml @ 5 mls/ hr IV .Q20H NILSA Rx#:[id number] Output: Output, Urine Amount 1030 / 4130 2019 Other: Number of Unmeasured Voids 0 Weight 110.088 kg Patient Weight 01/04/23 23:59 Weight 110.088 kg Laboratory Results - last 24 hr 01/03/23 06:38: Chloride 105, Anion Gap 15.7 H 01/04/23 05:24: WBC 8.7, RBC 4.10 L, Hgb 12.5 L, Hct 37.8 L, MCV 92.2, MCH 30.4, MCHC 33.0, RDW 14.5, Plt Count 291, MPV 8.4, Neut % (Auto) 71.3, Lymph % (Auto) 21.1, [place] % (Auto) 5.9, Eos % (Auto) 1.2, Baso % (Auto) 0.5, Neut # (Auto) 6.2, Lymph # (Auto) 1.8, [place] # (Auto) 0.5, Eos # (Auto) 0.1, Baso # (Auto) 0.0 01/04/23 05:29: TSH 2.41 D, Free T4 Index 4.2 L, Thyroxine (T4) 10.7, T3 Uptake 39 I & O for Labs for Last 24 Hours: Intake & Output 01/01/23 01/02/23 01/03/23 01/04/23 23:59 23:59 23:59 23:59 Intake Total 1209 / 1209 3000 / 3000 3437 / 3437 605 / 605 Output Total 300 / 300 1850 / 2350 4130 / 4130 2019 Balance 909 / 909 1150 / 650 -693 / -693 -1415 / -1415 Weight 108.54 kg 110.45 kg 110.087 kg 110.088 kg Microbiology Reports for the Last 24 Hours: Microbiology 12/31/22 08:39 Sputum - Expectorated Sputum Gram Stain - Final 12/31/22 08:39 Sputum - Expectorated Sputum Sputum Culture - Final Normal Respiratory Shelia The patient's infection will respond to the chosen ABx?: Yes (BLOOD CULTURES AND SPUTUM NO GROWTH) Is the patient receiving the right drug, dose, and route?: Yes Could a more targeted ABx be ordered?: No
--- NOTE | 2023-01-04 10:29 | HMH.PTEV ---
Physical Therapy Evaluation Rehab PT IP Evaluation Start: 01/04/23 09:00 Freq: ONCE Status: Active Protocol: Document 01/04/23 10:24 [facility]OR[facility] (Rec: 01/04/23 10:28 [facility] [id number]) Subjective/History History History 67 yowm adm to [facility] with episode of AMS, N/V, and PNA. He reports he lives with his daughter, uses a cane for ambulation, and is generally independent with all mobility, 1-2 steps to enter the home. Subjective Subjective Pt reports he feels a little light headed when he stands initially, but this is pretty normal for me. Rehab PT IP Eval Objective Appearance Patient Behavior Appropriate Patient Orientation Person,Place,Time Difficulty following instructions none Speech Pattern Clear Ambulation Patient Able to Ambulate Yes Ambulation Observation IP General Gait Pattern Observation No Deviations/Normal,Antalgic Gait,Wide Based Gait Ambulation Distance (feet) 10 Ambulation Assistive Device None Ambulation Ability Contact Guard/Hand Hold Balance Ability to Arise Able, uses arms to help Sitting Balance Steady, safe Standing Balance Steady, wide stance Dynamic Sitting Balance Ability Good Dynamic Standing Balance Ability Good Transfers Bed Transfer Ability Contact Guard/Hand Hold Chair Transfer Ability Contact Guard/Hand Hold Sit to Stand Bed Transfer Ability Contact Guard/Hand Hold Sit to Stand Chair Transfer Ability Contact Guard/Hand Hold ROM All Extremities PT ROM Status WFL MMT All Extremities PT MMT WFL Rehab PT IP prob,goals,plan Problems Date of Evaluation: 01/04/23 PT IP Problems Bed Mobility,Transfers,Gait Rehab Potential Rehab Potential Good Plan PT Intervention Plan Bed Mobility,Transfers,Gait, Therapeutic Exercise PT Plan Frequency Daily Duration LOS Discharge Goals Bed Transfer Ability Supervision/Stand by Sit to Stand Chair Transfer Ability Supervision/Stand by Ambulation Assistive Device Straight Cane Ambulation Distance (feet) 30 Discharge Plan PT Discharge Plan Pt is appropriate to return home once medically stable for d/c. G -code Required No Eval Complexity Eval Charge Codes 44779 - Moderate Complex
--- NOTE | 2023-01-04 10:52 | HMH.OTEV ---
OT Inpatient Evaluation Rehab OT IP Evaluation Start: 01/04/23 09:00 Freq: ONCE Status: Active Protocol: Document 01/04/23 10:08 [facility] (Rec: 01/04/23 10:51 [facility] [id number]) Rehab OT IP Assessment Subjective History Pt oriented x 3 on arrival. Pt admitted on 12/31/22 due to AMS. Prior to being in the hosptial, pt lived at home with his daughter. Pt claims he was independent with all ADLs such as dressing, bathing , and feeding. He did require AE to complete lower body dressing such as a sock aid. He was dependent on daugther to complete IADLs. He did use a cane at times during functional mobility tasks. Pt has a past medical history of: (HFpEF) heart failure with preserved ejection fraction BMI 33.0-33.9,adult BPH (benign prostatic hyperplasia) Chronic pain Chronic, continuous use of opioids COPD (chronic obstructive pulmonary disease) Degenerative joint disease ( DJD) of lumbar spine Degenerative joint disease of cervical spine Hypertension Osteoarthritis of spine Paroxysmal atrial fibrillation Subjective I haven't been up for a few days. Objective Patient Orientation Person,Place,Birthday Upper Extremity Gross ROM WFL Bed Mobility bed mobility-scooting,bed mobility - supine/sit,bed mobility - rolling Assist Level Contact Guard/Hand Hold Transfer Training Sit/Stand Transfer Assist Level Contact Guard/Hand Hold Chair Transfer Ability Contact Guard/Hand Hold Chair Transfer Technique Sit to/from Ambulatory Rehab OT IP prob,goals,plan Problems Date of Evaluation: 01/04/23 OT IP Problems Bed Mobility,Transfers,Balance ,Self care,Safety Rehab Potential R
--- NOTE | 2023-01-04 11:04 | ECG_ITS ---
APPROVED REPORT Exam: Resting ECG HR:70 bpm ECG Measurements Heart Rate 70 AXES OK 158 P 32 QRSd 94 QRS 9 QT 379 T 30 QTc 400 Conclusion SINUS RHYTHM LEFT ATRIAL Abnormality BORDERLINE ECG UNCONFIRMED REPORT Electronically signed by : Jet Reynaga MD 01/04/2023 21:13:58
--- NOTE | 2023-01-04 11:16 | PC.NURSE ---
PT TOLERATED CARDIOVERSION WELL. LYING IN BED RESTING AT THIS TIME.
--- NOTE | 2023-01-04 11:29 | SW/DCPLANNER ---
I spoke with this patient regarding plans once medically stable for discharge. PT/OT evaluated patient and recommended home health services. After a lengthy discussion with patient regarding home health patient does not feel that he needs services at this time. I will continue to follow up with this patient until medically stable for discharge.
--- NOTE | 2023-01-04 12:35 | PC.NURSE ---
PT TRANSFERRED OUT OF STEP DOWN PER DIPESH MCCOY
--- NOTE | 2023-01-04 13:24 | EXP.ANES.CKL ---
[facility] Disclaimer: The information contained in this section may have been updated after the patient was seen, as this information can be updated by other users. 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 Hypertension Osteoarthritis of spine Paroxysmal atrial fibrillation Surgical History History of lumbar spinal fusion S/P appendectomy Social History Smoking Status: Former smoker alcohol intake: never substance use type: denies use current occupational status: unemployed Travel in the last 8 weeks: None [facility] Anesthesia Checklist Patient Identification Patient Identification: Arm Band and Verbal (Name & ) Structural Data Admitted From: Inpatient Planned Operative Procedure/s: Cardioversion Consent for Planned Operative Procedure(s) Verified: Yes NPO Status Verified Time NPO: 00:00 Airway Assessment C-Spine Mobility Assessed: Yes TMJ Mobility Assessed: Yes Dentition: Edentulous Neurological Assessment Level of Consciousness: Awake Hx Seizures: No Numbness or tingling in extremities: No Anesthesia Plan Anesthesia Risk discussed: Yes Anesthesia Plan: Verified ASA Class: III Anesthesia Type: MAC
[2023-01-04 14:10] LABS: Legionella pneumophila Urinary Negative (Negative)
[2023-01-04 15:09] LABS: Body Fluid Culture, Sterile Not indicated. (.); Organism ID Not indicated. (.); Specimen Source Urine (.); Streptococcus pneumoniae Ag Negative (Negative)
--- NOTE | 2023-01-04 16:08 | EXP.DC.SUM ---
General Admission date:: 12/31/22 Discharge date: 01/04/23 HPI HPI HPI: This is a 67-year-old male who presents to [facility] accompanied by his daughter Shanti Jimenez who assists with the history. She reports that her father and herself were working the garden this afternoon and he was doing more work than he typically does with his bad back. He started experiencing fever and nausea and got in the truck to cool off. Shanti reports that he has had a cough for about a week that has not resolved. The patient reports he became nauseous and they decided to go home. At home his nausea crescendoed and he threw up a couple of times. There was no associated diarrhea. He reports some left lower quadrant pain characterized as sharp and piercing and intermittent. He describes a colonoscopy in 2018 that was reported as normal. He reports no associated hematemesis, melena or hematochezia. His daughter reports that after throwing up he started talking out of his head. He became really hot. The patient reported feeling sick to my stomach. He took a Phenergan and it did not improve his symptomatology. He denied headache, seizures, loss of motor or sensory function. He reported to the emergency department for evaluation. In the ER he was tachycardic and tachypneic with fever. His laboratory evaluation identified a white blood cell count of 10.4 with normal hemoglobin and negative lactic acid and normal pH. His LFTs and lipase were normal. His creatinine was 1.2 and his magnesium 1.6. A CT of the abdomen identified diverticulosis but no evidence of diverticulitis. Chest imaging identified left lower lobe and right middle lobe pneumonia. He received IV fluid resuscitation for his sepsis presentation. Blood cultures were acquired and he was started on IV Zosyn and IV vancomycin. Currently he reports that he is tired but feeling better. His daughter Shanti at bedside endorses his improvement. Hospital Course Hospital Course Hospital Course: This is a 67-year-old male who presents to the ED with several days of cough and 24 hours of fever, chills and identified with sepsis in the ED with imaging confirming pneumonia.? Problems addressed are as follows: Sepsis, POA Acute on chronic respiratory failure with hypoxia Tobacco use history greater than 35 years 1 pack/day COPD on no home O2 Sepsis present on admission. Had tachycardia, tachypnea, fever, source with pneumonia. Started on empiric antibiotics and IV fluids. Initially required oxygen. Able to de-escalate to room air by day of discharge. Tolerated breathing treatments and inhalers during admission. We will. Transition to oral antibiotics to complete empiric course for 7 days total. Transition to cefdinir to complete empiric course of antibiotics. White cell count has normalized. Paroxysmal atrial fibrillation Rapid ventricular response (01/03) Telemetry monitoring. Troponin trended negative. Continued Eliquis 5 mg twice daily. Patient necessitated cardioversion. Initially required diltiazem drip, transitioned off of this medication due to heart failure. Converted back to sinus rhythm and did well. Continue metoprolol succinate 50 mg daily. Continue Entresto twice daily which is a new medication for him for his blood pressure and heart failure. Echo obtained during admission. Showed ejection fraction greater than 50% after cardioversion Chronic back pain Previous lumbar fusion noted. Follows with pain clinic on [address] in [place]. Continued home pain regimen. Tolerated well. Follow-up with cardiology in 1 to 2 weeks. Stable for discharge home to complete antibiotics. Exam Data for Last 24 hours Vital signs and Labs for Last 24 Hours: Temp Pulse Resp BP Pulse Ox 98.5 F 77 18 153/91 H 96 01/04/23 07:49 01/04/23 12:22 01/04/23 12:00 01/04/23 12:00 01/04/23 12:00 Laboratory Results - last 24 hr 12/31/22 19:55: Ur L.pneumophila Ag Nega
--- NOTE | 2023-01-06 13:28 | CARE MANAGER ---
Contacted patient related to hospital discharge. He is aware of medication changes and follow up appointments. Denies any questions or concerns. SHENA Bautista
[2023-01-09 20:50] LABS: MRSA DNA PCR Negative
== END 2023-01-04 17:20 | disposition home or self-care (01) | DRG 871 ==
LOC: ER 20:26 → 2ND 20:37
PROVIDERS: Physician Assistant; Admitting Provider Family Medicine; Emergency Provider Emergency Medicine; PCP Nurse Practitioner Family; Visit Provider Family Medicine
DX: A41.9 Sepsis, unspecified organism (principal); J18.9 Pneumonia, unspecified organism; J96.21 Acute and chronic respiratory failure with hypoxia; I50.30 Unspecified diastolic (congestive) heart failure; N40.0 Benign prostatic hyperplasia without lower urinary tract symptoms; J44.9 Chronic obstructive pulmonary disease, unspecified; M47.896 Other spondylosis, lumbar region; M47.892 Other spondylosis, cervical region; I48.0 Paroxysmal atrial fibrillation; Z87.891 Personal history of nicotine dependence; Z98.1 Arthrodesis status; M54.9 Dorsalgia, unspecified; G89.29 Other chronic pain; F17.210 Nicotine dependence, cigarettes, uncomplicated; Z79.01 Long term (current) use of anticoagulants; I11.0 Hypertensive heart disease with heart failure; D64.9 Anemia, unspecified
CPT/HCPCS: 36415; 71045; 71250; 74177; 80048; 80053; 80202; 81001; 82550; 82803; 83605; 83690; 83735; 84145; 84436; 84443; 84479; 84484; 85007; 85025; 85610; 86738; 87040; 87070; 87205; 87641; 87899; 93005; 93306; 93308; 94640; 97116; 97162; 97166; 97530; 99285; C9803; J2405; J2543; J3370; J3475; Q9967; U0003; U0005

== ENCOUNTER → 2023-01-21 12:42 | Outpatient (CLI) | payer MEDICARE, MEDICAID, SELFPAY ==
--- NOTE | 2023-01-21 12:42 | NM_ITS ---
APPROVED REPORT Exam: Nuclear Stress Test Indication: palpitations..syncope Patient Location: Outpatient Stress Tech: Angelika Shaw [place] Tech:ANTONIETA Tolliver RT(R)(N) Ht: 5 ft 8 in Wt: 234 lbs HR: 66 bpm BP: 174/81 mmHg BSA: 2.18 m2 TID: 1.18 BMI: 35.5 History: palpitations..syncope Procedure: Patient received 0.4 mg of intravenous Lexiscan, resting heart rate 66 bpm, resting blood pressure 174/81 mmHg, with Lexiscan maximum heart rate achieved was 93 bpm which is 85 % of the maximum predicted heart rate and blood pressure was 174/81 mmHg. With Lexiscan, patient denied any complaint of chest pain. The patient was not able to lay on his abdomen resting and stress for prone images. Cardiac Stress and Resting SPECT Images: Cardiac Stress and Resting SPECT images were obtained using technetium 99m Myoview 32.9 mCi stress and 10.29 mCi at rest. The study is limited due to no availability of prone stress SPECT imaging. Imaging in supine position demonstrate a large sized, severe, fixed perfusion defect in the entire inferior and infero-apical LV wall. Gated imaging demonstrates mild reduction in global LV systolic function. There is moderate hypokinesis in the inferior and apical LV ward. LVEF is calculated at 48%. Conclusion: The study is limited due to no availability of prone stress SPECT imaging. Large sized, severe, fixed perfusion defect in the entire inferior and infero-apical LV wall. No reversible ischemia. Gated imaging demonstrates mild reduction in global LV systolic function. There is moderate hypokinesis in the inferior and apical LV ward. LVEF is calculated at 48%. Electronically signed by : Val Sutton, 01/21/2023 23:52:51
--- NOTE | 2023-01-21 14:12 | CA_ITS ---
APPROVED REPORT Exam: Pharmacologic Technologist: Angelika Garibay, Ht: 5 ft 11 in Wt: 241 lbs BSA: 2.28 m2 HR: 64 bpm BP: 174/81 mmHg Rhythm: NSR Medical History Medications: Alprazolam,,,,, Pantoprazole,,,,, TAMSULOSIN,,,,, Albuterol,,,,, OxYCODONE,,,,, ElIQUIS,,,,, Pregabalin,,,,, Toprol XL,,,,, Potassium,,,,, EnTRESTO,,,,, Furosemide,,,,, Stress Test Details Test: LEXISCAN Reason for pharmacologic stress test: physical limitation. HR Resting HR: 66 bpm Max Heart Rate (APMHR): 151 bpm Max HR Achieved: 93 bpm Target HR (85% APMHR): 128 bpm % of APMHR: 62 Recovery HR: 72 bpm BP Resting BP: 174.0/81.0 mmHg Max BP: 174.0/81.0 mmHg Recovery BP: 156.0/83.0 mmHg ECG Resting ECG: NSR Stress ECG: No change Arrhythmia: None Recovery ECG: No change Recovery Arrhythmia: VPC Clinical Exercise duration: 04:00 min Highest Stage Achieved: Stress ECG Conclusion Symptoms: SOA, head discomfort. No CP. Arrhythmias/Ectopy: Rare PVC during recovery. ST-T Changes: No significant ST changes. Conclusion: Unremarkable Lexiscan stress. Myoview images reported separately. Test Summary REST . . . . . . . Resting REST . . . . . . . Resting REST 07:00 . . 66 . 174/ 81 . . Stage 1 01:00 . . 85 . . . . Stage 2 01:00 . . 87 . 160/ 80 . . Stage 3 01:00 . . 82 . 144/ 84 . . Stage 4 01:00 . . 79 . 153/ 81 . Stop exercise at 04:00 RECOVERY 01:00 . . 76 . . . . RECOVERY 02:00 . . 74 . 141/ 78 . . RECOVERY 03:00 . . 73 . 138/ 79 . . RECOVERY 04:00 . . 71 . 156/ 83 . . RECOVERY 04:07 . . 71 . 156/ 83 . . Electronically signed by : Val Sutton, 01/21/2023 23:48:09
== END ==
PROVIDERS: PCP Nurse Practitioner Family; Visit Provider Physician Assistant
DX: I10 Essential (primary) hypertension (principal); I48.0 Paroxysmal atrial fibrillation; I50.9 Heart failure, unspecified; J44.9 Chronic obstructive pulmonary disease, unspecified; R06.09 Other forms of dyspnea; R42 Dizziness and giddiness; R94.31 Abnormal electrocardiogram [ECG] [EKG]; Z87.891 Personal history of nicotine dependence
CPT/HCPCS: 78452; 93017; A9502; J2785

== ENCOUNTER 2023-02-15 10:43 | Day surgery (SDC) | payer MEDICARE, MEDICAID, SELFPAY ==
[2023-02-15] VITALS (12 sets, daily range): BP systolic 99–171; BP diastolic 69–91; PULSE 51–64; RESP 16–20; O2SAT 92–98; BMI 34.2
--- NOTE | 2023-02-15 07:22 | IR_ITS ---
APPROVED REPORT Patient Location: Outpatient [facility] Attendant: ANTONIETA Duque RT (R) PROCEDURES Left heart catheterization Left ventriculogram Selective coronary angiogram INDICATION Abnormal Myoview, Angina pectoris, Informed consent was obtained prior to the procedure. COMPLICATIONS None Estimated Blood Loss: Less than 10 mls TECHNIQUE One percent lidocaine used to anesthetize the right anterior aspect of the wrist. The right radial artery was accessed via the Seldinger technique. A 6 Kazakh sheath was placed in the right radial artery. 150 mg magnesium sulfate, 800 mcg of nitroglycerin, 1mg Lidocaine and 5000 U Heparin were given through the arterial sheath. The papa catheter 6 Kazakh JL 3 also used to perform left heart catheterization, left ventriculogram and selective coronary angiogram. At the end of the procedure the sheath was removed good hemostasis was achieved using Traclet band, patient was transferred to the postop holding area in stable condition. ANGIOGRAPHIC RESULTS The left main artery Normal The left anterior descending artery Normal The circumflex artery Normal The right coronary artery Dominant normal The SAMUELS ventriculogram reveals Preserved at 55 to 60% The left ventricular end-diastolic pressure 20 to 25 mmHg IMPRESSION Normal coronary arteries Preserved ejection fraction Rated LVEDP consistent with diastolic dysfunction PLAN 1. Medical management for diastolic dysfunction Electronically signed by : Angelo Rojas MD 02/15/2023 12:23:07
[2023-02-15 11:17] LABS: Chloride 101 mmol/L (98-107); Potassium 3.8 mmoL/L (3.5-5.1); Sodium 141 mmol/L (136-145)
[2023-02-15 11:20] LABS: Anion Gap 12.8 mEq/L (5-15); Blood Urea Nitrogen 13 mg/dl (9-20); Carbon Dioxide 31 mmol/L (22.0-30.0); Creatinine Clearance Estimated 110 mL/min (50-200); Estimated Glomerular Filt Rate 74 ml/min (>60); GFR (African American) 90 ML/MIN (>60)
[2023-02-15 11:21] LABS: Calcium 8.8 mg/dl (8.4-10.2); Glucose 111 mg/dl (74-100)
[2023-02-15 11:25] LABS: INR 0.99 (0.9-1.1); Prothrombin Time 10.7 seconds (10.1-12.5)
[2023-02-15 11:28] LABS: Basophils % 0.8 % (0.1-2.0); Eosinophils # 0.1 K/mm3 (0.0-0.4); Eosinophils % 1.5 % (0.1-12.0); Hematocrit 42.5 % (42.0-52.0); Hemoglobin 13.8 g/dL (14.1-18.0); Lymphocytes # 1.9 K/mm3 (0.7-4.5); Lymphocytes % 32.3 % (10-50); Mean Corpuscular HGB Conc 32.5 g/dL (31.8-35.4); Mean Corpuscular Hemoglobin 29.5 pg (27.0-31.2); Mean Corpuscular Volume 90.8 fl (80-94); Mean Platelet Volume 8.2 fl (7.4-10.4); Monocytes # 0.5 K/mm3 (0.1-1.0); Monocytes % 8.5 % (1.7-9.3); Neutrophils # 3.3 K/mm3 (1.8-7.8); Neutrophils % 56.9 % (37.0-80.0); Platelet Count 227 K/mm3 (142-424); Red Blood Count 4.68 M/mm3 (4.60-6.20); Red Cell Distribution Width 13.4 % (11.5-17.5); White Blood Count 5.8 K/mm3 (4.8-10.8)
== END 2023-02-15 15:15 | disposition home or self-care (01) ==
PROVIDERS: PCP Nurse Practitioner Family; Visit Provider Internal Medicine
DX: R42 Dizziness and giddiness (principal); I48.0 Paroxysmal atrial fibrillation; R06.09 Other forms of dyspnea; R94.30 Abnormal result of cardiovascular function study, unspecified; R94.31 Abnormal electrocardiogram [ECG] [EKG]; Z87.891 Personal history of nicotine dependence; N40.0 Benign prostatic hyperplasia without lower urinary tract symptoms; G89.29 Other chronic pain; I11.0 Hypertensive heart disease with heart failure; J44.9 Chronic obstructive pulmonary disease, unspecified; I50.30 Unspecified diastolic (congestive) heart failure
CPT/HCPCS: 80048; 85025; 85610; 93458; 99152; C1725; C1769; J1644; Q9967

== ENCOUNTER 2023-10-13 12:14 | Outpatient (CLI) | payer MEDICARE, MEDICAID, SELFPAY ==
--- NOTE | 2023-10-13 12:34 | XR_ITS ---
FINAL REPORT TECHNIQUE: Chest PA & Lateral CLINICAL HISTORY: afib. dyspnea FINDINGS: 2 views of the chest were performed. The heart size is normal. The mediastinum is within normal limits. There is no acute cardiopulmonary process. There are no pleural effusions. There is no pneumothorax. Posterior fusion hardware is seen bridging the lower thoracic spine. IMPRESSION: No acute cardiopulmonary process. Reviewed, Interpreted and Dictated by Rodrick Sifuentes MD Transcribed by Gita Keane Authenticated and . [facility]
[2023-10-13 13:04] LABS: Basophils % 0.7 % (0.1-2.0); Eosinophils # 0.1 K/mm3 (0.0-0.4); Eosinophils % 1.8 % (0.1-12.0); Hematocrit 43.6 % (42.0-52.0); Hemoglobin 14.4 g/dL (14.1-18.0); Lymphocytes # 1.9 K/mm3 (0.7-4.5); Lymphocytes % 31.4 % (10-50); Mean Corpuscular HGB Conc 33.1 g/dL (31.8-35.4); Mean Corpuscular Hemoglobin 31.6 pg (27.0-31.2); Mean Corpuscular Volume 95.4 fl (80-94); Mean Platelet Volume 8.4 fl (7.4-10.4); Monocytes # 0.8 K/mm3 (0.1-1.0); Monocytes % 12.9 % (1.7-9.3); Neutrophils # 3.2 K/mm3 (1.8-7.8); Neutrophils % 53.2 % (37.0-80.0); Platelet Count 277 K/mm3 (142-424); Red Blood Count 4.57 M/mm3 (4.60-6.20); Red Cell Distribution Width 13.4 % (11.5-17.5); White Blood Count 6.1 K/mm3 (4.8-10.8)
[2023-10-13 14:09] LABS: Alanine Aminotransferase 25 U/L (12-78); Albumin Level 4.5 g/dl (3.5-5.0); Alkaline Phosphatase 89 U/L (38-126); Anion Gap 10.1 mEq/L (5-15); Aspartate Amino Transferase 31 U/L (17-59); Bilirubin,Direct 0.2 mg/dl (0.0-0.4); Bilirubin,Indirect 0.4 mg/dL (0.0-0.9); Bilirubin,Total 0.6 mg/dl (0.2-1.3); Bilirubin,Unconjugated 0.4 mg/dL (0.0-1.1); Blood Urea Nitrogen 9 mg/dl (9-20); Calcium 9.8 mg/dl (8.4-10.2); Carbon Dioxide 32 mmol/L (22.0-30.0); Chloride 106 mmol/L (98-107); Chol/HDL Ratio 6.5 (1-3.5); Cholesterol 209 mg/dl (140-200); Estimated Glomerular Filt Rate 84 ml/min (>60); GFR (African American) 101 ML/MIN (>60); Glucose 104 mg/dl (74-100); HDL Cholesterol 32 mg/dl (40-60); Magnesium 2.2 mg/dl (1.6-2.3); Potassium 5.1 mmoL/L (3.5-5.1); Sodium 143 mmol/L (136-145); Total Protein,Serum 7.2 g/dl (6.3-8.2); Triglycerides 250 mg/dl (30-150); VLDL Cholesterol 50 mg/dL (0-40)
[2023-10-13 14:20] LABS: Direct LDL Cholesterol 117.35 mg/dL (100-129)
[2023-10-13 14:40] LABS: Thyroid Stimulating Hormone 0.87 uIU/mL (0.465-4.68)
== END 2023-10-13 23:59 ==
LOC: LAB 12:15
PROVIDERS: Visit Provider Internal Medicine
DX: I48.0 Paroxysmal atrial fibrillation (principal); I50.20 Unspecified systolic (congestive) heart failure; I51.9 Heart disease, unspecified; R06.00 Dyspnea, unspecified; R42 Dizziness and giddiness
CPT/HCPCS: 36415; 71046; 80048; 80061; 80076; 83735; 84439; 84443; 85025; 93225

== ENCOUNTER 2023-10-26 07:59 | Outpatient (CLI) | payer MEDICARE, MEDICAID, SELFPAY ==
--- NOTE | 2023-10-26 08:03 | CA_ITS ---
APPROVED REPORT EXAM: Comprehensive 2D, Doppler, and color-flow Echocardiogram Crown Presser: Liana Mckinney RT(R) Ht: 5 ft 11 in Wt: 255lbs BSA: 2.34 BP: 146/69 mmHg Indications: AFIB, COPD, ex smoker, MCKEON, HTN, CHF 2D Dimensions EF AP4 58.40 % GL Strain -18.6 % M-Mode Dimensions RVDd 3.49 cm (0.9-2.6) LA Diam 3.23 cm (1.9-4.0) LVDd 6.04 cm (3.5-5.7) LVDs 4.43 cm (3.5-5.7) IVSd 0.94 cm (0.6-1.1) PWd 0.89 cm (0.6-1.1) EF (Teich) 51.30% FS 26.70% EDV (Teich) 182.80 mL ESV (Teich) 89.10 mL LV Diastology E Decel Time 247 (160-240 msec) E/A Ratio 1.1 Mitral Valve MV E Max Antonio. 66.0 (40-130 cm/s) MV A Velocity 62.0 (40-130 cm/s) E/A Ratio 1.07 MV PHT 72.0 ms Left Ventricle The left ventricle is normal size. The left ventricular systolic function is normal. The left ventricular ejection fraction is within the normal range. There is normal left ventricular wall thickness. There is normal LV segmental wall motion. The left ventricular diastolic function is normal. LVEF is 55%. Right Ventricle The right ventricle is mildly dilated. The right ventricular systolic function is normal. Atria The left atrium size is normal. The right atrium size is normal. There is no Doppler evidence of interatrial shunt. Aortic Valve The aortic valve is mildly thickened. There is no aortic valvular stenosis. Trace aortic regurgitation is present. Mitral Valve The mitral valve leaflets are mildly thickened. No evidence of mitral valve stenosis. Trace mitral regurgitation. Tricuspid Valve The tricuspid valve leaflets are thin and pliable. Trace tricuspid regurgitation. There is insufficient TR jet to estimate RVSP. Pulmonic Valve The pulmonary valve is normal in structure. Trace pulmonic regurgitation. Great Vessels The aortic root is normal in size. The ascending aorta is normal in size. The IVC is not well-visualized. Pericardium There is no pericardial effusion. Other Information Study Quality: Technically Difficult Conclusion Technically difficult study due to poor acoustic windows. Normal biventricular systolic function. Mild RV dilation. No significant valvular stenosis or regurgitation. Electronically signed by : Val Sutton MD 10/29/2023 20:38:37
== END 2023-10-26 23:59 ==
LOC: RT 07:59
PROVIDERS: PCP Nurse Practitioner Family; Visit Provider Internal Medicine
DX: I48.0 Paroxysmal atrial fibrillation (principal); I50.20 Unspecified systolic (congestive) heart failure; I51.9 Heart disease, unspecified; R06.00 Dyspnea, unspecified; R42 Dizziness and giddiness
CPT/HCPCS: 93306

== ENCOUNTER 2024-03-13 08:14 | Outpatient (CLI) | payer MEDICARE, MEDICAID, SELFPAY ==
--- NOTE | 2024-03-13 08:17 | US_ITS ---
FINAL REPORT CLINICAL HISTORY: claudication, previous smoker, HTN, obesity COMPARISON: None FINDINGS: LOWER EXTREMITY SEGMENTAL PRESSURE MEASUREMENTS FINDINGS: Pressure indices are as follows: RIGHT LOWER EXTREMITY: Thigh: 1.06 Calf: 1.06 Ankle, posterior tibial artery: 1.03 Ankle, dorsalis pedis: 1.14 Toe: 0.80 NURIS: 1.14 Comments: Unremarkable LEFT LOWER EXTREMITY: Thigh: 1.13 Calf: 1.13 Ankle, posterior tibial artery: 1.17 Ankle, dorsalis pedis: 1.07 Toe: 0.78 NURIS: 1.17 Comments: Unremarkable IMPRESSION: No evidence of significant peripheral vascular disease. Reviewed, Interpreted and Dictated by Doreen Sheffield MD Transcribed by Celine Michelle Authenticated and [facility]
== END 2024-03-13 23:59 | disposition home or self-care (01) ==
LOC: RT 08:16
PROVIDERS: PCP Nurse Practitioner Family; Visit Provider Nurse Practitioner
DX: I73.9 Peripheral vascular disease, unspecified (principal)
CPT/HCPCS: 93923

== ENCOUNTER 2024-04-06 09:06 | Outpatient (CLI) | payer MEDICARE, MEDICAID, SELFPAY | END 2024-04-06 23:59 | disposition home or self-care (01) | LOC: RT 09:08 | PROVIDERS: PCP Nurse Practitioner Family; Visit Provider Nurse Practitioner | DX: R06.09 Other forms of dyspnea; I48.0 Paroxysmal atrial fibrillation | CPT/HCPCS: 93270 ==

== ENCOUNTER 2024-05-09 11:17 | Outpatient (CLI) | payer MEDICARE, MEDICAID, SELFPAY | END 2024-05-09 23:59 | disposition home or self-care (01) | LOC: RT 11:18 | PROVIDERS: PCP Nurse Practitioner Family; Visit Provider Nurse Practitioner | DX: I48.91 Unspecified atrial fibrillation (principal) | CPT/HCPCS: 93270 ==

== ENCOUNTER 2024-12-21 07:55 | Outpatient (CLI) | payer MEDICARE, MEDICAID, SELFPAY ==
--- NOTE | 2024-12-21 07:58 | CA_ITS ---
APPROVED REPORT EXAM: Comprehensive 2D, Doppler, and color-flow Echocardiogram Rubber Belt Splicer: Janie Benavidez RDCS Ht: 5 ft 11 in Wt: 268lbs BSA: 2.39 BP: 141/81 mmHg Indications: SOA,PAF,EDEMA,COPD,HTN M-Mode Dimensions RVDd 4.28 cm (0.9-2.6) LA Diam 5.07 cm (1.9-4.0) LVDd 5.59 cm (3.5-5.7) LVDs 3.86 cm (3.5-5.7) IVSd 0.64 cm (0.6-1.1) PWd 0.85 cm (0.6-1.1) EF (Teich) 58.00% FS 30.90% EDV (Teich) 153.00 mL TAPSE 1.36 (<1.7) ESV (Teich) 64.30 mL LV Diastology E Decel Time 207 (160-240 msec) E/A Ratio 0.9 Mitral Valve MV E Max Antonio. 52.0 (40-130 cm/s) MV A Velocity 58.0 (40-130 cm/s) E/A Ratio 0.89 MV PHT 61.0 ms Left Ventricle The left ventricle is normal size. The left ventricular systolic function is normal. The left ventricular ejection fraction is within the normal range. There is increased LV wall thickness. There is normal LV segmental wall motion. Diastolic function is indeterminate. LVEF is 55%. Right Ventricle Right ventricle is mildly dilated. The right ventricular systolic function is normal. Atria The left atrium size is normal. The right atrium size is normal. There is no Doppler evidence of interatrial shunt. Aortic Valve Aortic valve is mildly thickened. Trace aortic regurgitation. There is no aortic valvular stenosis. Mitral Valve The mitral valve leaflets are mildly thickened. No evidence of mitral valve stenosis. Mild mitral regurgitation. Tricuspid Valve Tricuspid valve is grossly normal in structure and function. Trace tricuspid regurgitation. There is insufficient TR jet to estimate RVSP. Pulmonic Valve The pulmonary valve is normal in structure. Mild pulmonic regurgitation. Great Vessels The aortic root is normal in size. IVC is normal in size and collapses >50% with inspiration. Pericardium There is no pericardial effusion. Other Information Study Quality: Technically Difficult Conclusion Technically difficult study due to poor acoustic windows. Normal biventricular function. Mild RV dilation. Mild MR, mild PI. Electronically signed by : Val Sutton MD 12/24/2024 23:32:01
--- OUTSIDE RECORDS SUMMARY | 2024-12-21 07:58 | XMS_ITS | Data Portability ---
Author Organization [facility] Address [address] [place] [address] Assessment No assessment recorded. Plan of Treatment Reminders Order Date Submit Date Provider Last Modified By Organization Details Last Modified Time Details Appointments None recorded. Lab hemoglobin A1C/hemoglo bin total, QN, blood [address] ([facility]), [address] [place] [address] [place], [address], 5 07:45:18 lipid panel, serum [address] ([facility]), [address] [place] [address] [place], [address], 5 07:45:18 CBC w/ auto diff 2024 025 [facility]), [address] [place] [address] [place], [address], 5 13:27:06 TSH, serum or plasma [address] ([facility]), [address] [place] [address] [place], [address], 5 07:45:18 pro BNP (pro B-type natriuretic peptide), serum or plasma 2024 025 [facility]), [address] [place] [address] [place], [address], 5 13:54:59 CMP, serum or plasma 2024 025 [facility] ([facility]), [address] [facility] [place], [address], 5 13:54:56 PSA, serum or plasma 2024 025 [facility] ([facility]), [address] [facility] [place], [address], 5 13:56:06 influenza virus A + B + SARS-CoV-2 (COVID19) Ag panel, rapid IA, upper respiratory specimen [address], [address] [place] [address], [address], 4 11:24:25 Referral None recorded. Procedures None recorded. Surgeries None recorded. Imaging US, abdomen, complete [address] - Centralized Scheduling, [address] [facility] , [place], [address], 5 07:45:12 XR, chest, 2 view [email or web address] [facility], [address] [place] [address], [place], [address], 5 10:26:55 XR, chest, 2 view 2023 024 [facility], [address] [place] [address], [address], 4 13:19:31 Medication Orders promethazin e-DM 6.25 mg-15 mg/5 mL oral syrup 2023 025 [facility], [address] [facility], [place], [address], 5 09:23:59 ceftriaxone 1 gram solution for injection 2023 024 [facility], [address] [place], [address], 5 09:23:42 dexamethaso ne sodium phosphate 4 mg/mL injection solution 2023 024 [facility], [address] [place], [address], 5 09:23:47 cephalexin 500 mg capsule 2023 025 [facility], [address] [place], [address], 5 09:23:49 ceftriaxone 1 gram solution for injection 2023 024 [facility], [address] [place], [address], 5 09:23:42 dexamethaso ne sodium phosphate 4 mg/mL injection solution 2023 024 [facility], [address] [place], [address], 5 09:23:47 ceftriaxone 1 gram solution for injection 2023 024 [facility], [address] [place], [address], 5 09:23:42 dexamethaso ne sodium phosphate 4 mg/mL injection solution 2023 024 [facility], [address] [place] [address], [address], 5 09:23:47 Patient TargetsNo targets recorded. Patient Instructions Encounter Date Encounter Id Patient Instructions Last Modified By Organization Details Last Modified Time 06/26/2024 [id number] plan 1. Patient retested for COVID-19 and flu and still negative. 2. Chest x-ray obtained and increased markings but no definite consolidation. 3. 1 g of Rocephin and 2 cc of Decadron given. I would like to repeat these several days in a row until patient is feeling better. 4. Continue breathing treatments every 4-6 hours scheduled. I will see him back tomorrow for re-evaluation and repeat injections, should his symptoms worsen he is to go to the ER and patient verbalized understanding. Not available 06/26/2024 11:37:06 06/27/2024 [id number] Plan 1. Repeated 1 g of Rocephin and 2 cc of Decadron. 2. Continue with breathing treatments every 4-6 hours scheduled. 3. I will see him back tomorrow for re-evaluation, again if his symptoms worsen he is to consider going to the ER and he verbalizes understanding. [email or web address] Not available 06/27/2024 10:20:12 06/28/2024 [id number] plan 1. Repeated two cc of Decadron one g of Rocephin today. 2. Keflex sent in to start tomorrow. 3. Sent in Phenergan cough syrup for him to take as needed. 4. Continue breathing to six hours. I will see him back next week to make sure he's feeling better and offer him a flu shot as well as making sure his labs are up-to-date. He's to return sooner if needed. [email or web address] Not available 06/28/2024 10:50:17 11/13/2024 [id number] plan 1. Asked patient's to call and make him a follow-up with his tie in hand tho. We need to address the change in his medication and the absence of diuretics. 2. [facility]. 3. Abdominal ultrasound ordered for distention. 4. Extensive lab work completed. 5. I will see him back on Wednesday for re-evaluation, sooner if needed. [email or web address] Not available 11/13/2024 09:52:03 11/24/2024 [id number] Plan 1. discussed abnormal abdominal ultrasound showing gallbladder changes but patient is asymptomatic so we will do no further workup at this time but in the future we may need to order a HIDA scan once he has cardiac clearance. 2. Discussed lab work which was all under great control. A copy was given to him. 3. Discussed chest x-ray results which were negative. 4. Patient will continue with pain management. 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 5. Patient has an upcoming appointment with Cardiology and I feel that he will probably need stress testing and consider heart catheterization which he has not had in several years. We will see him back after his consult and proceed accordingly. [email or web address] Not available 11/24/2024 10:09:38 Reason for Referral None Reported. Results Created Date Observation Date Name Description Value Unit Range Abnormal Flag Note LastModifiedBy Organization Detail LastModifiedTime 06/15/2006/15/2024 influ cesar virus A + B + SARS- CoV-2 (COVI D19) Ag panel , rapid IA, upper respi rator y speci men FLU A negati ve Not Available [address], [address], 06/15/2024 10:11:47 06/15/2006/15/2024 influ cesar virus A + B + SARS- CoV-2 (COVI D19) Ag panel , rapid IA, upper respi rator y speci men FLU B negati ve Not Available [address], [address], 06/15/2024 10:11:47 06/15/2006/15/2024 influ cesar virus A + B + SARS- CoV-2 (COVI D19) Ag panel , rapid IA, upper respi rator y speci men SARS COV + SARS OV 2 negati ve Not Available [address], [address], 06/15/2024 10:11:47 06/26/20 24 06/26/2024 influ cesar virus A + B + SARS- CoV-2 (COVI D19) Ag panel , rapid IA, upper respi rator y speci men FLU A negati ve Not Available [address], [address], 06/26/2024 10:57:19 06/26/20 24 06/26/2024 influ cesar virus A + B + SARS- CoV-2 (COVI D19) Ag panel , rapid IA, upper respi rator y speci men FLU B negati ve Not Available [address], [address], 06/26/2024 10:57:19 06/26/20 24 06/26/2024 influ cesar virus A + B + SARS- CoV-2 (COVI D19) Ag panel , rapid IA, upper respi rator y speci men SARS COV + SARS OV 2 negati ve Not Available [address], [address], 06/26/2024 10:57:19 11/14/19 25 11/13/2024 CBC WITH AUTO DIFF WBC 6.5 10 4.5-11 .5 Not Available [facility]) [address] [facility] [place] [place], [address], 11/13/2024 13:27:06 11/14/19 25 11/13/2024 CBC WITH AUTO DIFF RBC 4.55 10 4.60-6 .00 low Not Available [facility] ([facility]) [address] [facility] [place], [address], 11/13/2024 13:27:06 11/14/19 25 11/13/2024 CBC WITH AUTO DIFF hemoglobin 13.8 g/dL 14.0-1 8.0 low Not Available [facility] (Lab) [address] [facility] [place] [place], [address], 11/13/2024 13:27:06 11/14/19 25 11/13/2024 CBC WITH AUTO DIFF hematocrit 41.5 % 40.0-5 4.0 Not Available [facility] ([facility]) [address] [facility] [place] [place], [address], 11/13/2024 13:27:06 11/14/19 25 11/13/2024 CBC WITH AUTO DIFF MCV 91.2 fL 80-100 Not Available [facility] (Lab) [address] [facility] [place], [address], 11/13/2024 13:27:06 11/14/19 25 11/13/2024 CBC WITH AUTO DIFF MCH 30.3 pg 26-32 Not Available [facility] ([facility]) [address] [facility] [place], [address], 11/13/2024 13:27:06 11/14/19 25 11/13/2024 CBC WITH AUTO DIFF MCHC 33.3 g/dL 32-36 Not Available [facility] (Lab) [address] [facility] [place] [place], [address], 11/13/2024 13:27:06 11/14/19 25 11/13/2024 CBC WITH AUTO DIFF RDW 12.6 % 11.5-1 4.5 Not Available [facility] ([facility]) [address] [facility] [place] [place], [address], 11/13/2024 13:27:06 11/14/19 25 11/13/2024 CBC WITH AUTO DIFF platelet count 233 10 150-45 0 Not Available [facility] (Lab) [address] [facility] [place] [place], [address], 11/13/2024 13:27:06 11/14/19 25 11/13/2024 CBC WITH AUTO DIFF mean platelet volume 10.6 fL 6.8-10 .2 high Not Available [facility] (Lab) [address] [facility] [place], [address], 11/13/2024 13:27:06 03/24/20 25 11/13/2024 CBC WITH AUTO DIFF manual differential NOT INDICA KYLEIGH Not Available [facility] (Lab) [address] [facility] [place] [place], [address], 11/13/2024 13:27:06 11/14/19 25 11/13/2024 CBC WITH AUTO DIFF ne% 44.1 % 50-70 low Not Available [facility] ([facility]) [address] [facility] [place] [place], [address], 11/13/2024 13:27:06 11/14/19 25 11/13/2024 CBC WITH AUTO DIFF lymphs 37.1 % 18-42 Not Available [facility] (Lab) [address] [facility] [place], [address], 11/13/2024 13:27:06 11/14/19 25 11/13/2024 CBC WITH AUTO DIFF MO% 16.2 % 2-11 high Not Available [facility] ([facility]) [address] [facility] [place] [place], [address], 11/13/2024 13:27:06 11/14/19 25 11/13/2024 CBC WITH AUTO DIFF eo% 1.4 % 1-3 Not Available [facility] ([facility]) [address] [facility] [place], [address], 11/13/2024 13:27:06 11/14/19 25 11/13/2024 CBC WITH AUTO DIFF ba% 0.9 % 0.0-2. 0 Not Available [facility] ([facility]) [address] [facility] [place], [address], 11/13/2024 13:27:06 11/14/19 25 11/13/2024 CBC WITH AUTO DIFF neutrophils (absolute) 2.9 K/uL 2.0-6. 9 Not Available [facility] ([facility]) [address] [facility] [place] [place], [address], 11/13/2024 13:27:06 11/14/19 25 11/13/2024 CBC WITH AUTO DIFF lymphocytes (absolute) 2.4 K/uL 0.6-3. 4 Not Available [facility] ([facility]) [address] [facility] [place], [address], 11/13/2024 13:27:06 11/14/19 25 11/13/2024 CBC WITH AUTO DIFF monocytes (absolute) 1.1 K/uL 0.0-0. 9 high Not Available [facility] ([facility]) [address] [facility] [place], [address], 11/13/2024 13:27:06 11/14/19 25 11/13/2024 CBC WITH AUTO DIFF eosinophils (absolute) 0.1 K/uL 0.0-0. 7 Not Available [facility] (Lab) [address] [place] [address] [place], [address], 11/13/2024 13:27:06 11/14/19 25 11/13/2024 CBC WITH AUTO DIFF basophils (absolute) 0.06 K/uL 0.0-0. 2 Not Available [facility] (Lab) [address] [place] [address] [place], [address], 11/13/2024 13:27:06 11/14/19 25 11/13/2024 COMPR EHENS MARLEY METAB OLIC PANEL sodium 136 mmol/ L 136-14 5 Not Available [facility] ([facility]) [address] [place] [address] [place], [address], 11/13/2024 13:54:56 11/14/19 25 11/13/2024 COMPR EHENS MARLEY METAB OLIC PANEL potassium 4.2 mmol/ L 3.5-5. 1 Not Available [facility] ([facility]) [address] [place] [address] [place], [address], 11/13/2024 13:54:56 11/14/19 25 11/13/2024 COMPR EHENS MARLEY METAB OLIC PANEL chloride 99 mmol/ L 98.0-1 07.0 Not Available [facility] ([facility]) [address] [facility] [place] [place], [address], 11/13/2024 13:54:56 11/14/19 25 11/13/2024 COMPR EHENS MARLEY METAB OLIC PANEL total CO2 30 mmol/ L 21-32 Not Available [facility] ([facility]) [address] [facility] [place] [place], [address], 11/13/2024 13:54:56 11/14/19 25 11/13/2024 COMPR EHENS MARLEY METAB OLIC PANEL anion gap 11.2 mmol/ L 5.0-15 .0 Not Available [facility] ([facility]) [address] [facility] [place], [address], 11/13/2024 13:54:56 11/14/19 25 11/13/2024 COMPR EHENS MARLEY METAB OLIC PANEL glucose 107 mg/dL 70-120 Not Available [facility] (Lab) [address] [facility] [place], [address], 11/13/2024 13:54:56 11/14/19 25 11/13/2024 COMPR EHENS MARLEY METAB OLIC PANEL BUN 9 mg/dL 7-18 Not Available [facility] (Lab) [address] [facility] [place], [address], 11/13/2024 13:54:56 11/14/19 25 11/13/2024 COMPR EHENS MARLEY METAB OLIC PANEL creatinine 1.1 mg/dL 0.8-1. 3 Not Available [facility] ([facility]) [address] [facility] [place], [address], 11/13/2024 13:54:56 11/14/19 25 11/13/2024 COMPR EHENS MARLEY METAB OLIC PANEL BUN/creatini ne ratio 8.2 ratio 9-21 low Not Available [facility] (Lab) [address] [facility] [place] [place], [address], 11/13/2024 13:54:56 11/14/19 25 11/13/2024 COMPR EHENS MARLEY METAB OLIC PANEL estimated glom filtration rate >60 mL/mi n 60.0- Not Available [facility] ([facility]) [address] [facility] [place], [address], 11/13/2024 13:54:56 11/14/19 25 11/13/2024 COMPR EHENS MARLEY METAB OLIC PANEL calcium 9.2 mg/dL 8.6-9. 8 Not Available [facility] ([facility]) [address] [facility] [place], [address], 11/13/2024 13:54:56 11/14/19 25 11/13/2024 COMPR EHENS MARLEY METAB OLIC PANEL bilirubin, total 0.5 mg/dL 0.2-1. 0 USE OF THIS ASSAY IS NOT RECOM CHANI D FOR PATIE NTS UNDER GOING TREAT MENT WITH ELTRO MBOPA G DUE TO THE POTEN TIAL FOR FALSE LY ELEVA KYLEIGH RESUL TS. Not Available [facility] (Lab) [address] [facility] [place], [address], 11/13/2024 13:54:56 11/14/19 25 11/13/2024 COMPR EHENS MARLEY METAB OLIC PANEL AST (SGOT) 25 IU/L 15-37 Not Available [facility] (Lab) [address] [place] [address] [place], [address], 11/13/2024 13:54:56 11/14/19 25 11/13/2024 COMPR EHENS MARLEY METAB OLIC PANEL ALT (SGPT) 33 IU/L 12-78 Not Available [facility] (Lab) [address] [facility] [place], [address], 11/13/2024 13:54:56 11/14/19 25 11/13/2024 COMPR EHENS MARLEY METAB OLIC PANEL alk phos 112 IU/L 46-116 Not Available [facility] (Lab) [address] [facility] [place], [address], 11/13/2024 13:54:56 11/14/19 25 11/13/2024 COMPR EHENS MARLEY METAB OLIC PANEL total protein 7.2 g/dL 6.4-8. 2 Not Available [facility] (Lab) [address] [facility] [place], [address], 11/13/2024 13:54:56 11/14/19 25 11/13/2024 COMPR EHENS MARLEY METAB OLIC PANEL albumin 3.8 g/dL 3.4-5. 0 Not Available [facility] (Lab) [address] [facility] [place], [address], 11/13/2024 13:54:56 11/14/19 25 11/13/2024 COMPR EHENS MARLEY METAB OLIC PANEL globulin 3.4 g/dL 1.3-3. 5 Not Available [facility] (Lab) [address] [place] [address] [place], [address], 11/13/2024 13:54:56 11/14/19 25 11/13/2024 COMPR EHENS MARLEY METAB OLIC PANEL alb/glob ratio 1.1 ratio 1.0-3. 9 Not Available [facility] (Lab) [address] [place] [address] [place], [address], 11/13/2024 13:54:56 11/14/19 25 11/13/2024 COMPR EHENS MARLEY METAB OLIC PANEL osmolality, calculated 271 mOsm/ kg 272-29 5 low Not Available [facility] (Lab) [address] [place] [address] [place], [address], 11/13/2024 13:54:56 11/14/19 25 11/13/2024 LIPID PANEL triglyceride s 262 mg/dL 1-150 high Not Available [facility] (Lab) [address] [facility] [place] [place], [address], 11/13/2024 13:54:58 11/14/19 25 11/13/2024 LIPID PANEL cholesterol 200 mg/dL 0-200 Not Available [facility] (Lab) [address] [facility] [place] [place], [address], 11/13/2024 13:54:58 11/14/19 25 11/13/2024 LIPID PANEL HDL chol 38 mg/dL 35-60 Not Available [facility] ([facility]) [address] [facility] [place] [place], [address], 11/13/2024 13:54:58 11/14/19 25 11/13/2024 LIPID PANEL chol/HDL ratio 5 -4.44 high Not Available [facility] (Lab) [address] [facility] [place] [place], [address], 11/13/2024 13:54:58 11/14/19 25 11/13/2024 LIPID PANEL LDL (calculated) 110 mg/dL -130 Not Available [facility] (Lab) [address] [place] [address] [place], [address], 11/13/2024 13:54:58 11/14/19 25 11/13/2024 TSH TSH 2.85 uIU/m L 0.3600 -3.740 0 Not Available [facility] (Lab) [address] [place] [address] [place], [address], 11/13/2024 13:54:59 11/14/19 25 11/13/2024 NT-ME O BNP BNP 15 pg/mL 5-100 Not Available [facility] (Lab) [address] [place] [address] [place], [address], 11/13/2024 13:54:59 11/14/19 25 11/13/2024 PROST ATE SPECI FIC AG (PSA) prostate specific antigen 2.3 NG/mL 0.13-4 .0 METHO DOLOG Y: IMMUN OASSA Y Not Available [facility] (Lab) [address] [facility] [place], [address], 11/13/2024 13:56:06 11/14/19 25 11/13/2024 HEMOG LOBIN A1C hemoglobin A1C 5.6 % 4.3-6. 4 Not Available [facility] (Lab) [address] [facility], [place], [address], 11/13/2024 14:15:57 06/26/20 24 XR, chest , 2 view No observ ation record ed. [address], [address], 06/26/2024 10:57:21 11/14/19 25 XR, chest , 2 view No observ ation record ed. [email or web address] [address], [address], 11/13/2024 09:50:29 11/16/19 25 11/13/2024 XR, chest , 2 view [facility] al [address] [place] [address] Phone: Fax: Name: VI SAUCEDA Exam Date: : [birth year] Age 69 years Gender : M Access ion: [id number] Physic jorge: PHYLLIS COFFMAN ty: [facility] al HSV: Outpat ient Exam: CHEST PA AND LAT Chest x-ray: 2 views CLINIC AL INDICA TION: Shortn ess of breath COMPAR MELODY: Octobe r 2022 Findin gs: Trache a and medias tinum are midlin e. Cardia c silhou ette is within normal limits . There is no focal lung consol idatio n or effusi on. Impres pablo: Lungs are clear. Electr onical ly signed by: Aaron Zepeda MD 2024 11:38 PM EDT RP Workst ation: [id number] Dictat ed By: AARON ZEPEDA Transc ribed By: Transc ribed On: 025 11:38 PM Electr onical ly signed by: AARON ZEPEDA 025 Thank you for referr ing VI SAUCEDA to [facility]. Legall y authen ticate d by MIGUEL Blackwood S 11-15 23:38: 11 CC'ed Logic: Orderi ng Provid er: ORACIO FERGUSON CC Provid er: ORACIO FERGUSON Attend ing Provid er: ORACIO FERGUSON Referr ing Provid er: ORACIO FERGUSON Admitt ing Provid er: ORACIO FERGUSON [email or web address] [facility] ([facility]) [address] [facility] [place], [address], 11/16/2024 09:36:04 11/24/19 25 11/23/2024 US ABD [facility] [address] [place] [address] Phone: Fax: Name: VI SAUCEDA Exam Date: 11/24/19 : [birth year] Age 69 years Gender : M Access ion: [id number] Physic jorge: PHYLLIS COFFMAN Facili ty: [facility] HSV: Outpat ient Exam: US ABD US ABDOME N 11/24/19 9:28 AM CDT CLINIC AL INDICA TION: Male, 69 years old. ABDOMI NAL DISTEN TION Multip le sonogr aphic images of the abdome n supple mented by color Dopple r as needed . Liver 17.4 cm Common bile duct 4 mm Right kidney 11.7 cm Left kidney 12.1 cm Spleen 9.2 cm * Visual ized aorta, inferi or vena cava, and pancre as unrema rkable . * Liver is normal in size, fatty replac ement is demons trated . * No gallst ones or bile duct dilata tion. * Gallbl adder wall somewh at thicke elizabeth, hypere chogen ic materi al is presen t, this may certai nly repres ent findin gs seen in associ ation with adenom yosis or chroni c cholec ystiti s. * No abnorm ality involv ing the spleen . * No hydron ephros is involv ing the kidney s * IMPRES PABLO: * No gallst ones or bile duct dilata tion, gallbl adder wall somewh at thicke elizabeth, see above discus pablo Electr onical ly signed by: Wellington liu MD 2024 12:10 PM EDT RP Workst ation: [id number] Dictat ed By: WELLINGTON WEISS Transc ribed By: Transc ribed On: 11/24/19 12:06 PM Electr onical ly signed by: WELLINGTON WEISS 11/24/19 Thank you for referr ing SUSANA SON, VI Y to [facility] al. Legall y authen ticate d by NANCY Turk 11-23 12:06: 48 CC'ed Logic: Orderi ng Provid er: ORACIO FERGUSON CC Provid er: ORACIO FERGUSON Attend ing Provid er: ORACIO FERGUSON Referr ing Provid er: ORACIO FERGUSON Admitt ing Provid er: ORACIO FERGUSON [email or web address] [facility]) [address] [facility] , [place], [address], 11/24/2024 11:18:46 Result Notes None recorded. Problems Name Problem SNOMED Code Status Onset Date Resolution Date Notes Provider Name and Address Organization Details Recorded Time Dyspnea 996254371 Active 2024 Phyllis Coffman NP [address] [facility], [address], [facility] - [facility] [place] 5 09:49:46 Swollen abdomen 88388268 Active 2024 Phyllis Coffman NP [address] [facility],[address], [place], [address], [facility] - [facility] - [place] & [place] 5 09:50:58 Cough 82697021 Active 2022 Supriya yuen, [place] - [facility] & [place] 3 08:42:23 Essential hypertensio n 06232964 Active 2022 Phyllis Coffman NP [facility],[address], [place], [address], [place] - [facility] - [place] & [place] 3 09:20:42 Hyperlipide ori 14429202 Active 2022 Phyllis Coffman NP [facility], [address], [place] - [facility] - [place] & [place] 3 09:20:45 Disorder of lumbar disc 655119631 Active 2022 Phyllis Coffamn NP [facility],[address], [place], [address], [place] - [facility] - [place] & [place] 3 09:20:29 Atrial fibrillatio n 68031483 Active 2022 Phyllis Coffman NP [facility],[address], [place], [address], [place] - [facility] - [place] & [place] 3 09:20:39 Fatigue 93380069 Active 2022 Phyllis Coffman NP [facility],[address], [place], [address], [place] - [facility] - [place] & [place] 5 09:48:28 Bronchitis 13193900 Active 2022 Zahra Syed PA-C [facility], [address], [place] - [facility] - [place] & [place] 3 10:03:01 Benign prostatic hyperplasia 696449157 Active 2022 Phylils Coffman NP 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,[address], [place], [address], [place] - [facility] - [place] & [place] 3 09:38:33 Pain in lower limb 67319436 Active 2022 Phyllis Coffman NP [facility],[address], [place], [address], [place] - [facility] - [place] & [place] 3 09:39:13 Chronic pain syndrome 269950507 Active 2022 Phyllis Coffman NP [facility],[address], [place], [address], [place] - [facility] - [place] & [place] 3 08:44:19 Chronic systolic heart failure 660892025 Active 2022 Phyllis Coffman NP [facility],[address], [place], [address], [place] - [facility] - [place] & [place] 3 10:06:28 Skin lesion 16570873 Active 2022 Phyllis Coffman NP [facility],[address], [place], [address], [place] - [facility] - [place] & [place] 3 08:52:02 Acute exacerbatio n of chronic obstructive pulmonary disease 061589608 Active 2022 Phyllis Coffman NP [facility],[address], [place], [address], [place] - [facility] - [place] & [place] 3 08:53:15 Chronic obstructive pulmonary disease 34877003 Active 2023 Phyllis Coffman NP [facility],[address], [place], [address], [place] [facility] & [place] 4 09:15:46 Blood glucose outside reference range 747322805 Active 2023 Phyllis Coffman, SHROUDMAN [address] [facility],[address], [place], [address], [place] [facility] & [place] 5 09:49:09 Problem Notes None recorded. Procedures Surgical History Date Name Laterality Status Provider Name and Address Organization Details Recorded Time Back Surgery completed Supriya SEVILLA - NT [facility] & [place] 08/28/2022 09:15:09 Imaging Results Imaging Date Name Status LastModified by Organsanjay ation Details LastModified Time 06/26/2024 XR, chest, 2 view completed [email or web address] [address], [address], 06/26/2024 10:57:21 11/13/2024 XR, chest, 2 view completed [email or web address] [address], [address], 11/13/2024 09:50:29 11/13/2024 XR, chest, 2 view completed [facility] [address] [place] [address] [place], [address], 11/16/2024 09:36:04 11/23/2024 [place] ABD completed [email or web address] [facility] [address] [facility] [place], [address], 11/24/2024 11:18:46 Procedure Notes None recorded. Medical Equipment None Reported. Allergies Allergen ID Allergen Name Allergen Category Reaction Reaction Severity Criticality Documentation Date Start Date Code Code System Note Provider Name and Address Organization Details Recorded Time 10958 Vioxx medicatio n Not available Not available Not available 08/28/2022 17953 9 RxNorm Supriya yuen, DI - LPNT [facility] & [place] 3 09:11:53 Medications Name Sig Start Date Stop Date Status Note LastModified by Organization Details LastModified Time methocarbam ol 500 mg tablet Take 1 tablet 4 times a day by oral route. 03/29 completed Not Available Not Available Not Available promethazin e-DM 6.25 mg-15 mg/5 mL oral syrup Take 5 mL every 4 hours by oral route for 7 days. 11/13 completed Not Available Not Available Not Available sennosides 8.6 mg tablet Take 2 tablets every day by oral route. 03/29 completed Not Available Not Available Not Available azithromyci n 250 mg tablet 11/13 completed Not Available Not Available Not Available alprazolam 1 mg tablet TAKE 1 TABLET BY MOUTH TWICE DAILY NEEDED. EFFECTIVE 10/27 active Not Available Not Available No t Available metoprolol succinate ER 50 mg tablet,exte nded release 24 hr TAKE 1 TABLET BY MOUTH ONCE A DAY. 12/01 completed Not Available Not Available Not Available atenolol 25 mg tablet TAKE 1 TABLET BY MOUTH ONCE DAILY. active Not Available Not Available No t Available potassium chloride ER 10 mEq tablet,exte nded release TAKE 1 TABLET BY MOUTH ONCE A DAY. 12/01 completed Not Available Not Available Not Available Depo-Medrol 80 mg/mL suspension for injection Take 80 mg by injection route. 12/09 completed Not Available Not Available Not Available oxycodone 15 mg tablet TAKE 1 TABLET BY MOUTH EVERY 6 HOURS NEEDED FOR BREAKTHRO UGH PAIN. EFFECTIVE 10/30 active Not Available Not Available No t Available bisoprolol fumarate 5 mg tablet TAKE 1 TABLET BY MOUTH ONCE A DAY. 11/13 completed Not Available Not Available Not Available ceftriaxone 1 gram solution for injection Take 1 g by injection route. 11/13 completed Not Available Not Available Not Available tamsulosin 0.4 mg capsule TAKE (1) CAPSULE BY MOUTH ONCE A DAY. active Not Available Not Available No t Available meclizine 25 mg tablet TAKE 1 TABLET BY MOUTH TWICE DAILY NEEDED FOR DIZZINESS . 06/22 completed Not Available Not Available Not Available cephalexin 500 mg capsule TAKE 1 CAPSULE BY MOUTH EVERY 8 HOURS FOR 7 DAYS. 11/13 completed Not Available Not Available Not Available pantoprazol e 40 mg tablet,bradford yed release TAKE 1 TABLET BY MOUTH ONCE A DAY. 03/29 completed Not Available Not Available Not Available bumetanide 0.5 mg tablet TAKE 1 TABLET BY MOUTH ONCE DAILY. 06/22 completed Not Available Not Available Not Available promethazin e 25 mg tablet TAKE 1 TABLET BY MOUTH ONCE A DAY NEEDED FOR NAUSEA active Not Available Not Available No t Available furosemide 20 mg tablet TAKE ONE TABLET BY MOUTH ONCE DAILY. 12/01 completed Not Available Not Available Not Available metoprolol succinate ER 25 mg tablet,exte nded release 24 hr TAKE 1 TABLET BY MOUTH ONCE A DAY. 01/13 completed Not Available Not Available Not Available dexamethaso ne sodium phosphate 4 mg/mL injection solution Inject 1 mL by intramusc ular route. 11/13 completed Not Available Not Available Not Available methylpredn isolone 4 mg tablets in a dose pack TAKE 6 TABS ON DAY 1, 5 TABS ON DAY 2, 4 TABS ON DAY 3, 3 TABS ON DAY 4, 2 TABS ON DAY 5, 1 TABLET ON DAY 6. 12/01 completed Not Available Not Available Not Available albuterol sulfate HFA 90 mcg/actuati on aerosol inhaler INHALE 2 PUFFS EVERY 4-6 HOURS active Not Available Not Available No t Available cefdinir 300 mg capsule TAKE (1) CAPSULE BY MOUTH TWICE DAILY. 01/13 completed Not Available Not Available Not Available fluticasone propionate 50 mcg/actuati on nasal spray,suspe nsion USE 1 SPRAY IN EACH NOSTRIL ONCE DAILY active Not Available Not Available No t Available ezetimibe 10 mg tablet TAKE 1 TABLET BY MOUTH ONCE A DAY. 06/22 completed Not Available Not Available Not Available duloxetine 30 mg capsule,del ayed release TAKE 1 CAPSULE BY MOUTH TWICE DAILY. 06/22 completed Not Available Not Available Not Available pregabalin 75 mg capsule TAKE (1) CAPSULE BY MOUTH TWICE DAILY. 01/13 completed Not Available Not Available Not Available pregabalin 100 mg capsule TAKE (1) CAPSULE BY MOUTH TWICE DAILY FOR 3 DAYS THEN 1 CAPSULE THREE TIMES A DAY FILL 12/01 completed Not Available Not Available Not Available diclofenac 1 % topical gel APPLY TO AFFECTED AREAS 2-3 TIMES A DAY NEEDED active Not Available Not Available No t Available Eliquis 5 mg tablet TAKE 1 TABLET BY MOUTH TWICE DAILY. active Not Available Not Available No t Available dapaglifloz in propanediol 10 mg tablet TAKE 1 TABLET BY MOUTH ONCE A DAY. 12/01 completed Not Available Not Available Not Available OxyContin 40 mg tablet,timothy h resistant,e xtended release TAKE 1 TABLET BY MOUTH TWICE DAILY. EFFECTIVE 10/27/24 active Not Available Not Available No t Available Entresto 24 mg-26 mg tablet TAKE (1) TABLET BY MOUTH TWICE A DAY. 12/01 completed Not Available Not Available Not Available diclofenac sodium 1.5 % topical drops-menth ol 10 % roll-on combo pack 09/24 completed Not Available Not Available Not Available Vitals Date Recorded Body height Body mass index (BMI) Body weight Body temperature Oxygen saturation Oxygen saturation in Arterial blood by Pulse oximetry Heart rate Systolic blood pressure Diastolic blood pressure Provider Name and Address Organization Details Last Updated DateTime 4 180.34 cm 34.9 kg/m2 479577. 09 g 99.6 [degF] 96 % 96 % 90 /min 132 mm[Hg] 80 mm[Hg] Renetta Hudson [facility] 4 10:43:32 Date Recorded Body height Body mass index (BMI) Body weight Body temperature Oxygen saturation Oxygen saturation in Arterial blood by Pulse oximetry Heart rate Systolic blood pressure Diastolic blood pressure Provider Name and Address Organization Details Last Updated DateTime 4 180.34 cm 34.9 kg/m2 160266. 09 g 99.8 [degF] 96 % 96 % 80 /min 140 mm[Hg] 84 mm[Hg] Renetta SEVILLA [facility] 4 09:53:12 Date Recorded Body height Body mass index (BMI) Body weight Body temperature Oxygen saturation Oxygen saturation in Arterial blood by Pulse oximetry Heart rate Systolic blood pressure Diastolic blood pressure Provider Name and Address Organization Details Last Updated DateTime 4 180.34 cm 34.9 kg/m2 157915. 09 g 98.4 [degF] 98 % 98 % 73 /min 132 mm[Hg] 80 mm[Hg] Renetta Hudson [facility] & [place] 4 10:35:38 Date Recorded Body height Body temperature Oxygen saturation Oxygen saturation in Arterial blood by Pulse oximetry Heart rate Systolic blood pressure Diastolic blood pressure Provider Name and Address Organization Details Last Updated DateTime 5 180.34 cm 97.9 [degF] 96 % 96 % 72 /min 134 mm[Hg] 80 mm[Hg] Shagufta Bradford [facility] & [place] 5 09:22:38 Date Recorded Body mass index (BMI) Body weight Provider Name and Address Organization Details Last Updated DateTime 11/13/2024 37.5 kg/m2 582375.35 g Raquel Hoang [facility] & [place] 11/13/2024 09:48:22 Date Recorded Body height Body mass index (BMI) Body weight Body temperature Oxygen saturation Oxygen saturation in Arterial blood by Pulse oximetry Heart rate Systolic blood pressure Diastolic blood pressure Provider Name and Address Organization Details Last Updated DateTime 5 180.34 cm 37.5 kg/m2 662909. 35 g 97.7 [degF] 92 % 92 % 86 /min 124 mm[Hg] 60 mm[Hg] Shagufta Bradford [facility] & [place] 5 09:22:24 Social History Question Answer Notes LastModified by Organizat ion Details LastModified Time Tobacco Smoking Status Never Smoker [facility] [place] 08/28/2022 09:14:53 What Is Your Level Of Alcohol Consumption? None Information not available 12/10/2023 Do You Use Any Illicit Or Recreational Drugs? No Information not available 12/10/2023 Sex: Unknown Functional Status None recorded. Mental Status None recorded. Family History Relationship Description Onset Age of this Age Resolved Age Notes LastModified by Organization Details LastModified Time Father Family member [email or web address] Not available 2022 09:24:08 Medical History Condition Response Other Y Immunizations Vaccine Type Date Status Note Provider Nam e and Address Organization Details Recorded Time COVID-19, mRNA, LNP-S, PF, 100 mcg/0.5mL dose or 50 mcg/0.25mL dose 11/06/2020 completed Supriya Cordoba DI yuen - LPNT [facility] & [place] 08/28/2022 09:14:18 COVID-19, mRNA, LNP-S, PF, 100 mcg/0.5mL dose or 50 mcg/0.25mL dose 12/04/2020 completed Supriya Cordoba DI yuen LPNT [facility] & [place] 08/28/2022 09:14:18 Past Encounters Encounter ID Performer Location Encounter Start Date Encounter Closed Date Diagnosis/Indication Diagnosis SNOMED-CT Code Diagnosis ICD10 Code Diagnosis Note [id number] Rosenda Quan [address] [address] [place] [address] 08/28/2022 08:33:42 08/28/2022 09:53:25 Cough 89487673 R05.9 Essential hypertension 85342418 I10 Bronchitis 58586836 J40 [id number] Rosenda Quan [address] [address] [place] [address] 09/02/2022 09:40:32 09/02/2022 10:21:58 Bronchitis 90743272 J40 Hyperlipidemia 10659094 E78.5 Benign pro static hyperplasia 758062820 N40.0 Family his tory of diabetes mellitus 254815510 Z83.3 [id number] Rosenda Quan [address] [address] [facility] [place] [address] 09/24/2022 08:45:23 09/24/2022 09:45:30 Radiculopathy due to lumbar intervertebral disc disorder 6441628076 75648 M51.16 Pain in lower limb 86269 006 M79.604 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 07753632 I70.209 Atrial fibrillation 4943 6004 I48.91 Essential hypertension 23554170 I10 [id number] Rosenda Quan [address] [address] [place] [address] 10/21/2022 10:19:39 10/21/2022 11:26:02 Pain in lower limb 99004065 M79.604 [id number] Rosenda Quan DO [address] [address] [address] [facility] [place] [address] 11/03/2022 08:33:02 11/03/2022 09:26:29 Radiculopathy due to lumbar intervertebral disc disorder 8533394307 93106 M51.16 Chronic pain syndrome 37 0963848 G89.4 Atrial fibrillation 4943 6004 I48.91 Chronic sy stolic heart failure 757651493 I50.22 [id number] Rosenda Quan DO [address] [address] [address] [facility] [place] [address] 01/13/2023 09:01:04 01/13/2023 10:17:18 Atrial fibrillation 43747902 I48.91 Chronic sy stolic heart failure 610484833 I50.22 [id number] Rosenda Quan [address] [address] [address] [facility] [place] [address] 02/24/2023 09:40:42 02/24/2023 10:48:29 Atrial fibrillation 98146812 I48.91 Chronic sy stolic heart failure 518842339 I50.22 Radiculopa thy due to lumbar intervertebral disc disorder 4239775739 44352 M51.16 [id number] Rosenda Quan DO [address] [address] [address] [facility] [place] [address] 03/29/2023 08:21:09 03/29/2023 09:12:09 Skin lesion 35965011 L98.9 [id number] Noe Beaulieu MD [address] [address] [address] [facility] [place] [address] 07/28/2023 08:18:24 07/28/2023 09:02:29 Acute exacerbation of chronic obstructive pulmonary disease 870542478 J44.1 Essential hypertension 93141883 I10 [id number] Noe Beaulieu MD [address] [address] [place] [address] 12/02/2023 08:45:49 12/02/2023 10:05:19 Essential hypertension 10454778 I10 Chronic ob structive pulmonary disease 19214018 J44.9 Benign pro static hyperplasia 783453017 N40.0 Atrial fibrillation 4943 6004 I48.91 Hyperlipidemia 67939341 E78.5 Fatigue 85148376 R53.83 Blood gluc ose outside reference range 347250193 R73.09 Radiculopa thy due to lumbar intervertebral disc disorder 2835584225 97698 M51.16 [id number] Noe Beaulieu MD [address] [address] 12/10/2023 08:46:40 12/10/2023 09:28:56 Radiculopathy due to lumbar intervertebral disc disorder 5749394406 94281 M51.16 Hyperlipidemia 68816790 E78.5 Essential hypertension 32404452 I10 [id number] Noe Beaulieu MD [address] [place] [address] 02/01/2024 08:03:26 02/01/2024 09:08:50 Atrial fibrillation 69189923 I48.91 Benign pro static hyperplasia 688416733 N40.0 Chronic sy stolic heart failure 891975509 I50.22 Essential hypertension 97398273 I10 Hyperlipidemia 41618273 E78.5 Fatigue 62342027 R53.83 [id number] Noe Beaulieu MD [address] [address] [facility] [place] [address] 06/15/2024 09:45:21 06/15/2024 10:33:14 Cough 47133039 R05.9 Acute exac erbation of chronic obstructive pulmonary disease 908474259 J44.1 [id number] Noe Beaulieu MD [address] [address] [facility] [place] [address] 06/22/2024 10:14:31 06/22/2024 11:00:31 Acute exacerbation of chronic obstructive pulmonary disease 725529118 J44.1 Essential hypertension 17128139 I10 [id number] Noe Beaulieu MD [address] [address] [place] [address] 06/26/2024 10:35:17 06/26/2024 11:41:28 Cough 43615056 R05.9 Acute exac erbation of chronic obstructive pulmonary disease 764733716 J44.1 [id number] Noe Beaulieu MD [address] [address] [place] [address] 06/27/2024 09:43:55 06/27/2024 10:24:25 Acute exacerbation of chronic obstructive pulmonary disease 786817771 J44.1 [id number] Noe Beaulieu MD [address] [address] [place] [address] 06/28/2024 10:25:38 06/28/2024 11:00:43 Acute exacerbation of chronic obstructive pulmonary disease 797815625 J44.1 [id number] Noe Beaulieu MD [address] [address] [place] [address] 11/13/2024 09:01:38 11/13/2024 10:09:02 Atrial fibrillation 57279945 I48.91 Chronic sy stolic heart failure 492216845 I50.22 Hyperlipidemia 58724628 E78.5 Essential hypertension 96291190 I10 Benign pro static hyperplasia 082857837 N40.0 Fatigue 54349419 R53.83 Blood gluc ose outside reference range 608235669 R73.09 Dyspnea 421236684 R06.02 Swollen abdomen 35823173 R14.0 [id number] Noe Beaulieu MD [address] [address] [place] [address] 11/24/2024 09:10:28 11/24/2024 10:23:41 Atrial fibrillation 55570625 I48.91 Chronic sy stolic heart failure 639571957 I50.22 Essential hypertension 49874156 I10 Chronic pain syndrome 37 4645311 G89.4 Health Concerns Section Related Observation LastModified by Organization Detai ls LastModified Time None Recorded Concern Status LastModified by Organization Details LastModified Time None Recorded Advance Directives Directive None Recorded Payers Encounter Date Sequence Insurance Name Policy Number Policy Maxwell Covered Member ID Maxwell Member ID Guarantor Name 06/26/2024 1 [place] [id number] Charlie Wes Jacksonoxson [id number] Charlie W Renettaoxson 06/27/2024 1 [place] [id number] Charlie Jacksonoxson [id number] Charlie Wes Jacksonoxson 06/28/2024 1 [place] [id number] Charlie W Renettaoxson [id number] Charlie Jacksonoxson 11/13/2024 1 [place] [id number] Charlie Wes Jacksonoxson [id number] Charlie Jacksonoxson 11/24/2024 1 [place] [id number] Charlie Harvey Renettaoxson [id number] Charlie Kempson Notes Date Note Type Note Provider Name and Address Organization Details Recorded Time 06/26/2024 text/html 68-year-old avis ent presents today for recheck on COPD exacerbation. States he was feeling better but now states he woke up this morning and he is feeling awful. Nonproductive cough, body aches, and fatigue. Nothing taken for symptoms other than the injections we have already given him and the Z-Willi and the Medrol Dosepak that he finished a few days ago. Phyllis Coffman, ALEJANDRO [address] [facility],[address], [place], [address], [place] - [facility] 06/27/2024 13:22:02 06/27/2024 text/html 68-year-old avis ent presents today for 1 day re-evaluation on COPD exacerbation. I have done a couple of rounds of antibiotics with him as well as a round of steroids and he continues to be symptomatic and came in yesterday actually feeling worse. He was recommended to go to the ER for possible admit, but patient declined. Elected to give him a g of Rocephin and 2 cc of Decadron and see him back daily for re-evaluation and he presents today. Patient states he feels slightly better than he did yesterday. He is doing breathing treatments as directed. Phyllis Coffman NP [address] [place] [address],[address], [place], [address], [facility] 06/28/2024 10:43:34 06/28/2024 text/html 68-year-old avis ent presents today for another 1 day recheck on COPD exacerbation. He has gotten 2 rounds of shots the last couple of days and states that he is feeling somewhat better today. His fever has resolved. Still having some cough and congestion, but improved. He has requesting a cough syrup today, especially at night to help him rest. He is continuing to do breathing treatments. Phyllis Coffman NP [address] [facility],[address], [place], [address], [facility] 06/29/2024 09:43:08 11/13/2024 text/html 69-year-old avis ent presents today with complaints of increasing weight and shortness of breath. He states he has not seen tie in hand, Shot well in months but when questioned about his Entresto and Lasix he states he was taken off of those. He states he feels distended in his abdomen and even having trouble eating and feeling too full to quickly. He states these symptoms have been increasing over the last few months. He was supposed to have a follow-up with cardiology in August but missed it due to the weather. It has not been rescheduled. Phyllis Coffman NP [address] [facility],[address], [place], [address], [facility] & [place] 11/14/2024 09:04:08 11/24/2024 text/html 69-year-old avis ent presents today for test results including chest x-ray, abdominal ultrasound, and lab results. Patient came in with feelings of abdominal distention, increasing shortness of breath, and feeling poorly progressive over the last few months. He also had not seen cardiology in some time so he was asked to call his tie in hand and make a follow-up appointment. He was able to get in with Dr. Granda well this upcoming Wednesday. Phyllis Coffamn NP [address] [facility],[address], [place], [address], [place] - [facility] - [place] & [place] 11/24/2024 14:47:27
--- OUTSIDE RECORDS SUMMARY | 2024-12-21 07:58 | XMS_ITS | Continuity of Care Document ---
Author Organization [place] - [place] [facility] Address [address] [place] [id number] Assessment No assessment recorded. Plan of Treatment Reminders Order Date Submit Date Provider Last Modified By Organization Details Last Modified Time Details Appointments None record ed. Lab None record ed. Referral None record ed. Procedures None record ed. Surgeries None record ed. Imaging None record ed. Medication Orders None record ed. Patient TargetsNo targets recorded. Patient Instructions Encounter Date Encounter Id Patient Instructions Last Modified By Organization Details Last Modified Time 11/24/2024 [id number] Plan 1. discussed abnormal abdominal ultrasound showing [...] back after his consult and proceed accordingly. [email or web address] Not available 11/24/2024 10:09:38 Reason for Referral None Reported. Results Created Date Observation Date Name Description Value Unit Range Abnormal Flag Note LastModifiedBy Organization Detail LastModifiedTime 11/14/19 XR, chest , 2 view No observ ation record ed. [email or web address] [address], [address], 11/13/2024 09:50:29 11/16/19 25 11/13/2024 XR, chest , 2 view [facility] [address] [place] [address] Phone: Fax: Name: VI SAUCEDA Exam Date: : [birth year] Age 69 years Gender : M Access ion: [id number] Physic jorge: PHYLLIS COFFMAN [facility] HSV: Outpat ient Exam: CHEST PA AND [...] ZEPEDA Transc ribed By: Transc ribed On: 11:38 PM Electr onical ly signed by: AARON ZEPEDA Thank you for referr ing VI SAUCEDA to [facility]. Legall y authen ticate d by MIGUEL Araujo 11-15 23:38: 11 CC'ed Logic: Orderi ng Provid er: ORACIO FERGUSON CC Provid er: ORACIO FERGUSON Attend ing Provid er: ORACIO FERGUSON Referr ing Provid er: ORACIO FERGUSON Admitt ing Provid er: ORACIO FERGUSON [email or web address] [facility] ([facility]) [address] [place] [address] [place], [address], 11/16/2024 09:36:04 11/24/19 25 11/23/2024 US ABD [facility] [address] [place] [address] Phone: Fax: Name: VI SAUCEDA Exam Date: 11/24/19 : [birth year] Age 69 years Gender : M Access ion: [id number] Physic jorge: PHYLLIS COFFMAN Renita ty: [facility] HSV: Outpat ient Exam: US ABD US [...] WEISS 11/24/19 Thank you for referr ing VI SAUCEDA to [facility]. Legall y authen ticate d by NANCY Turk 11-23 12:06: 48 CC'ed Logic: Orderi ng Provid er: ORACIO PHYLLIS CC Provid er: ORACIO FERGUSON Attend ing Provid er: ORACIO FERGUSON Referr ing Provid er: ORACIO FERGUSON Admitt ing Provid er: ORACIO FERGUSON [email or web address] [facility] (Im[facility]) [address] [facility] [place], [address], 11/24/2024 11:18:46 Result Notes None recorded. Problems Name Problem SNOMED Code Status Onset Date Resolution Date Notes Provider Name and Address Organization Details Recorded Time Dyspnea 575210564 Active 2024 Phyllis Coffman NP [address] [facility],[address], [place], [address], [place] - [facility] - [place] & [place] 5 09:49:46 Swollen abdomen 88148938 Active 2024 Phyllis Coffman NP [facility],[address], [place], [address], [place] [facility] - [place] & [place] 5 09:50:58 Cough 19740846 Active 2022 Supriyarosa maria [place], [place] - [facility] - [place] & [place] 3 08:42:23 Essential hypertensio n 03892081 Active 2022 Phyllis Coffman NP [address] [facility],[address], [place], [address], [place] [facility] [place] & [place] 3 09:20:42 Hyperlipide ori 85832099 Active 2022 Phyllis Coffman NP [address] [facility],[address], [place], [address], [place] [facility] - [place] & [place] 3 09:20:45 Disorder of lumbar disc 903643336 Active 2022 Phyllis Coffman NP [facility],[address], [place], [address], [place] [facility] - [place] & [place] 3 09:20:29 Atrial fibrillatio n 04595583 Active 2022 Phyllis Coffman NP [facility],[address], [place], [address], [place] [facility] [place] & [place] 3 09:20:39 Fatigue 03260933 Active 2022 Phyllis Coffman NP [facility],[address], [place], [address], [place] [facility] [place] & [place] 5 09:48:28 Bronchitis 22673636 Active 2022 Zahra Syed PA-C [facility],[address], [place], [address], [place] [facility] [place] & [place] 3 10:03:01 Benign prostatic hyperplasia 799356426 Active 2022 Phyllis Coffman NP [facility], [place], [address], [place] [facility] & [place] 3 09:20:34 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 4073466577512 05 Active 2022 Phyllis Coffman NP [facility],[address], [place], [address], [place] [facility] [place] & [place] 3 08:44:21 Atheroscler osis of arteries of the extremities 97145323 Active 2022 Phyllis Coffman NP [facility],[address], [place], [address], [place] [facility] [place] & [place] 3 09:38:33 Pain in lower limb 41960578 Active 2022 Phyllis Coffman NP [facility],[address], [place], [address], [place] [facility] [place] & [place] 3 09:39:13 Chronic pain syndrome 999153961 Active 2022 Phyllis Coffman NP [address] [facility],[address], [place], [address], [place] [facility] & [place] 3 08:44:19 Chronic systolic heart failure 966410749 Active 2022 Phyllis Coffman NP [address] [place] [address],[address], [place], [address], [place] [facility] - [place] & [place] 3 10:06:28 Skin lesion 33548456 Active 2022 Phyllis Coffman NP [facility],[address], [place], [address], [place] - [facility] - [place] & [place] 3 08:52:02 Acute exacerbatio n of chronic obstructive pulmonary disease 950698280 Active 2022 Phyllis Coffman NP [facility],[address], [place], [address], [place] - [facility] [place] [facility] & [place] 3 08:53:15 Chronic obstructive pulmonary disease 85173581 Active 2023 Phyllis Coffman NP [facility],[address], [place], [address], [place] [facility] - [place] & [place] 4 09:15:46 Blood glucose outside reference range 661962699 Active 2023 Phyllis Coffman NP [address] [place] [address],[address], [place], [address], [place] - [facility] - [place] & [place] 5 09:49:09 Problem Notes None recorded. Procedures Surgical History Date Name Laterality Status Provider Name and Address Organization Details Recorded Time Back Surgery completed [facility] [place] - [facility] & [place] 08/28/2022 09:15:09 Imaging Results None recorded. Procedure Notes None recorded. Medical Equipment None Reported. Allergies Allergen ID Allergen Name Allergen Category Reaction Reaction Severity Criticality Documentation Date Start Date Code Code System Note Provider Name and Address Organization Details Recorded Time 92282 Vioxx medicatio n Not available Not available Not available 08/28/2022 64768 9 RxNorm Supriya [place], [place] - [facility] - [place] & [place] 3 09:11:53 Medications Name Sig Start Date [...] and Address Organization Details Last Updated DateTime 180.34 cm 37.5 kg/m2 865359. 35 g 97.7 [degF] 92 % 92 % 86 /min 124 mm[Hg] 60 mm[Hg] Shagufta Bradford [facility] & [place] 09:22:24 Social History Question Answer Notes LastModified by Organizat ion Details LastModified Time Tobacco Smoking Status Never Smoker Supriya y[facility] & [place] 08/28/2022 09:14:53 What Is Your Level Of [...] or 50 mcg/0.25mL dose 11/06/2020 completed Supriya yuen, [place] [facility] - [place] & [place] 08/28/2022 09:14:18 COVID-19, mRNA, LNP-S, PF, 100 mcg/0.5mL dose or 50 mcg/0.25mL dose 12/04/2020 completed Supriya yuen, [place] [facility] [place] & [place] 08/28/2022 09:14:18 Past Encounters Encounter ID Performer Location Encounter Start Date Encounter Closed Date Diagnosis/Indication Diagnosis SNOMED-CT Code Diagnosis ICD10 Code Diagnosis Note [id number] Noe Beaulieu MD [address] [address] 11/13/2024 09:01:38 11/13/2024 10:09:02 Atrial fibrillation 45655675 I48.91 Chronic sy stolic heart failure 666210701 I50.22 Hyperlipidemia 09081707 E78.5 Essential hypertension 20046339 I10 Benign pro static hyperplasia 262415903 N40.0 Fatigue 26175996 R53.83 Blood gluc ose outside reference range 021332888 R73.09 Dyspnea 497535708 R06.02 Swollen abdomen 26831618 R14.0 [id number] Noe Beaulieu MD [address] [address] 11/24/2024 09:10:28 11/24/2024 10:23:41 Atrial fibrillation 79658689 I48.91 Chronic sy stolic heart failure 190294579 I50.22 Essential hypertension 76707259 I10 Chronic pain syndrome 37 5829764 G89.4 Health Concerns Section Related Observation LastModified by Organization Detai ls LastModified Time None Recorded Concern Status LastModified by Organization Details LastModified Time None Recorded Payers Encounter Date Sequence Insurance Name Policy Number Policy Maxwell Covered Member ID Maxwell Member ID Guarantor Name 11/24/2024 1 [place]MEDICARE [place]PLACEMENT HMO) [id number] Charlie Salas [id number] Charlie Salas Notes Date Note Type Note Provider Name and Address Organization Details Recorded Time 11/24/2024 text/html 69-year-old patient presents today for test results including chest x-ray, abdominal ultrasound, and lab results. Patient came in with feelings of abdominal distention, increasing shortness of breath, and feeling poorly progressive over the last few months. He also had not seen cardiology in some time so he was asked to call his basting puller and make a follow-up appointment. He was able to get in with Dr. Jesus Alberto florez this upcoming Wednesday. Phyllis Coffman, ALEJANDRO [address] [facility],[address], [place], [address], [place] & [place] 11/24/2024 14:47:27
--- OUTSIDE RECORDS SUMMARY | 2024-12-21 07:58 | XMS_ITS | Continuity of Care Document ---
Author Organization [facility] Address [address] [place] [phone] Assessment No assessment recorded. Plan of Treatment Reminders Order Date Submit Date Provider Last Modified By Organization Details Last Modified Time Details Appointments None recorded. Lab hemoglobin A1C/hemoglo bin total, QN, blood [address] ([facility]), [address] [facility] [place], [address], 5 07:45:18 lipid panel, serum [address] ([facility]), [address] [facility] [place], [address], 5 07:45:18 CBC w/ auto diff 2024 025 [facility] ([facility]), [address] [facility] [place], [address], 5 13:27:06 TSH, serum or plasma [address] ([facility]), [address] [facility] [place], [address], 5 07:45:18 pro BNP (pro B-type natriuretic peptide), serum or plasma 2024 025 [facility] ([facility]), [address] [facility] [place], [address], 5 13:54:59 CMP, serum or plasma 2024 025 [facility] (O), [address] [facility] [place], [address], 5 13:54:56 PSA, serum or plasma 2024 025 [facility] (O), [address] [facility] [place], [address], 5 13:56:06 Referral None recorded. Procedures None recorded. Surgeries None recorded. Imaging US, abdomen, complete [email or web address] [place] [address] - Centralized Scheduling, [address] [facility] [place], [address], 5 07:45:12 XR, chest, 2 view 2024 025 [email or web address] [facility], [address] [place] [address], [phone], 5 10:26:55 Medication Orders None recorded. Patient TargetsNo targets recorded. Patient Instructions Encounter Date Encounter Id Patient Instructions Last Modified By Organization Details Last Modified Time 11/13/2024 [id number] plan 1. Asked patient's to call and make him a follow-up with his supervisor [employer]. We need to address the change in his medication and the absence of diuretics. 2. Chest x-ray ordered at [facility]. 3. Abdominal ultrasound ordered for distention. 4. Extensive lab work completed. 5. I will see him back on Wednesday for re-evaluation, sooner if needed. [email or web address] Not available 11/13/2024 09:52:03 Reason for Referral None Reported. Results Created Date Observation Date Name Description Value Unit Range Abnormal Flag Note LastModifiedBy Organization Detail LastModifiedTime 11/14/19 25 XR, chest , 2 view No observ ation record ed. [email or web address] [address], [address], 11/13/2024 09:50:29 11/16/1911/13/2024 XR, chest , 2 view [facility] [address] [place] [address] Phone: Fax: Name: VI SAUCEDA Exam Date: 025 : [birth year] Age 69 years Gender : M Access ion: [id number] Physic jorge: PHYLLIS COFFMAN Facili ty: [facility] HSV: Outpat ient Exam: CHEST PA AND [...] are clear. Electr onical ly signed by: Aaorn Zepeda MD 2024 11:38 PM EDT RP Workst ation: [id number] Dictat ed By: AARON ZEPEDA Transc ribed By: Transc ribed On: 11:38 PM Electr onical ly signed by: AARON ZEPEDA Thank you for referr ing VI SAUCEDA to [facility]. Legall y authen ticate d by MIGUEL Araujo 11-15 23:38: 11 CC'ed Logic: Orderi ng Provid er: ORACIO FERGUSON CC Provid er: ORACIO FERGUSON Attend ing Provid er: ORACIO FERGUSON Referr ing Provid er: ORACIO FERGUSON Admitt ing Provid er: ORACIO FERGUSON [email or web address] [facility] (Imaging) [address] [place] [address], [place], [address], 11/16/2024 09:36:04 04/03/11/23/2024 US ABD [facility] [address] [place] [address] Phone: Fax: Name: VI SAUCEDA Exam Date: 11/24/19 : [birth year] Age 69 years Gender : M Access ion: [id number] Physic jorge: PHYLLIS COFFMAN ty: [facility] HSV: Outpat ient Exam: US ABD [...] 2024 12:10 PM EDT RP Workst ation: [facility] [id number] Dictat ed By: WELLINGTON WEISS Transc ribed By: Transc ribed On: 11/24/19 12:06 PM Electr onical ly signed by: WELLINGTON WEISS 11/24/19 Thank you for referr ing VI SAUCEDA to [facility] al. Legall y authen ticate d by NANCY Turk 11-23 12:06: 48 CC'ed Logic: Orderi ng Provid er: ORACIO FERGUSON CC Provid er: ORACIO FERGUSON Attend ing Provid er: ORACIO FERGUSON Referr ing Provid er: ORACIO FERGUSON Admitt ing Provid er: ORACIO FERGUSON [email or web address] [facility] ([facility]) [address] [place] [address] Dr, [place], [address], 11/24/2024 11:18:46 Result Notes None recorded. Problems Name Problem SNOMED Code Status Onset Date Resolution Date Notes Provider Name and Address Organization Details Recorded Time Dyspnea 937252272 Active 2024 Phyllis Coffman NP [facility] [employer] [facility],Sophia te [address] [place] [address], [phone], [place] - [place] - [place] & [place] 5 09:49:46 Swollen abdomen 81205513 Active 2024 Phyllis Coffman NP [facility] [employer] [facility],Sophia te [address] [place] [address], [address], [place] - [facility] - [place] & [place] 5 09:50:58 Cough 09318683 Active 2022 Supriya Adalid y[place], [place] - [facility] & [place] 3 08:42:23 Essential hypertensio n 66409343 Active 2022 Phyllis Coffman NP [facility] [employer] [facility]ophia te [address] [place] [address], [address], [place] - [place] - [place] & [place] 3 09:20:42 Hyperlipide ori 17640391 Active 2022 Phyllis Coffman NP [facility] [employer] [facility]ophia te [address] [place] [address], [address], [place] - [place] - [place] & [place] 3 09:20:45 Disorder of lumbar disc 086770165 Active 2022 Phyllis Coffman NP [facility] [employer] [facility]ophia te [address] [place] [address], [address], [place] - [place] - [place] & [place] 3 09:20:29 Atrial fibrillatio n 79799107 Active 2022 Phyllis Coffman NP [address] [place] [address],[address], [place], [address], [place] - [place] & [place] 3 09:20:39 Fatigue 51511922 Active 2022 Phyllis Coffman NP [facility],[address], [place], [address], [place] & [place] 5 09:48:28 Bronchitis 12103609 Active 2022 Zahra Syed PA-C [facility] [employer] [facility],[address], [place], [address], [place] - [place] & [place] 3 10:03:01 Benign prostatic hyperplasia 378136032 Active 2022 Phyllis Coffman NP [facility],[address], [place], [address], [place] - [place] & [place] 3 09:20:34 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 9140840968463 05 Active 2022 Phyllis Coffman NP [facility],[address], [place], [address], [place] - [place] & [place] 3 08:44:21 Atheroscler osis of arteries of the extremities 43108690 Active 2022 Phyllis Coffman NP [address] [place] [address],[address], [place], [address], [place] - [place] & [place] 3 09:38:33 Pain in lower limb 88031793 Active 2022 Phyllis Coffman NP [facility],[address], [place], [address], [place] [facility] - [facility] & [place] 3 09:39:13 Chronic pain syndrome 241085701 Active 2022 Phyllis Coffman NP [facility],[address], [place], [address], [place] [facility] - [facility] & [place] 3 08:44:19 Chronic systolic heart failure 658367624 Active 2022 Phyllis Coffman NP [facility],[address], [place], [address], [place] [facility] & [place] 3 10:06:28 Skin lesion 13972800 Active 2022 Phyllis Coffman NP [facility] [employer] [facility],[address], [place], [address], [place] - [place] & [place] 3 08:52:02 Acute exacerbatio n of chronic obstructive pulmonary disease 982565906 Active 2022 Phyllis Coffman NP [address],[address], [place], [address], [place] & [place] 3 08:53:15 Chronic obstructive pulmonary disease 68418188 Active 2023 Phyllis Coffman NP [facility],[address], [place], [address], [place] - [place] & [place] 4 09:15:46 Blood glucose outside reference range 361386099 Active 2023 Phyllis Coffman NP [address] [facility],[address], [place], [address], [place] - [place] & [place] 5 09:49:09 Problem Notes None recorded. Procedures Surgical History Date Name Laterality Status Provider Name and Address Organization Details Recorded Time Back Surgery completed Supriya Cordoba [place] - [place] - [place] & [place] 08/28/2022 09:15:09 Imaging Results Imaging Date Name Status LastModified by [facility] Details LastModified Time 11/13/2024 XR, chest, 2 view completed [email or web address] [facility] [address] [facility], [place], [address], 11/13/2024 09:50:29 Procedure Notes None recorded. Medical Equipment None Reported. Allergies Allergen ID Allergen Name Allergen Category Reaction Reaction Severity Criticality Documentation Date Start Date Code Code System Note Provider Name and Address Organization Details Recorded Time 22040 Vioxx medicatio n Not available Not available Not available 08/28/2022 62275 9 RxNorm Supriya [facility] & [place] 09:11:53 Medications Name Sig Start Date Stop [...] TAKE (1) CAPSULE BY MOUTH TWICE DAILY. 05/24 /2023 completed Not Available Not Available Not Available [...] Available Vitals Date Recorded Body height Body temperature Oxygen saturation Oxygen saturation in Arterial blood by Pulse oximetry Heart rate Systolic blood pressure Diastolic blood pressure Provider Name and Address Organization Details Last Updated DateTime 5 180.34 cm 97.9 [degF] 96 % 96 % 72 /min 134 mm[Hg] 80 mm[Hg] Shagufta Bradford [facility] & [place] 09:22:38 Date Recorded Body mass index (BMI) Body weight Provider Name and Address Organization Details Last Updated DateTime 11/13/2024 37.5 kg/m2 129822.35 g Raquel Hoang [facility] & [place] 11/13/2024 09:48:22 Social History Question Answer Notes LastModified by Organizat ion Details LastModified Time Tobacco Smoking Status Never Smoker DI Angelo [facility] & [place] 08/28/2022 09:14:53 What Is Your Level Of [...] Immunizations Vaccine Type Date Status Note Provider Henry vicente and Address Organization Details Recorded Time COVID-19, mRNA, LNP-S, PF, 100 mcg/0.5mL dose or 50 mcg/0.25mL dose 11/06/2020 completed Supriya Cordoba DI yuen [facility] & [place] 08/28/2022 09:14:18 COVID-19, mRNA, LNP-S, PF, 100 mcg/0.5mL dose or 50 mcg/0.25mL dose 12/04/[address] [facility] Supriya Cordoba wilfrid DI ZEPEDA [facility] & [place] 08/28/2022 09:14:18 Past Encounters Encounter ID Performer Location Encounter Start Date Encounter Closed Date Diagnosis/Indication Diagnosis SNOMED-CT Code Diagnosis ICD10 Code Diagnosis Note [id number] Noe Beaulieu MD [facility] [address] [address] 11/13/2024 09:01:38 11/13/2024 10:09:02 Atrial fibrillation 98371334 I48.91 Chronic sy stolic heart failure 347487033 I50.22 Hyperlipidemia 33846618 E78.5 Essential hypertension 97213168 I10 Benign pro static hyperplasia 188524049 N40.0 Fatigue 07893664 R53.83 Blood gluc ose outside reference range 685182407 R73.09 Dyspnea 704130292 R06.02 Swollen abdomen 43049378 R14.0 Health Concerns Section Related Observation LastModified by Organization Detai ls LastModified Time None Recorded Concern Status LastModified by Organization Details LastModified Time None Recorded Payers Encounter Date Sequence Insurance Name Policy Number Policy Maxwell Covered Member ID Maxwell Member ID Guarantor Name 11/13/2024 1 [place]MEDICARE [place]PLACEMENT HMO) [id number] Charlie Salas [id number] Charlie Salas Notes Date Note Type Note Provider Name and Address Organization Details Recorded Time 11/13/2024 text/html 69-year-old patient presents today with complaints of increasing weight and shortness of breath. He states he has not seen supervisor [employer], Dr. Granda well in months but when questioned about [...] weather. It has not been rescheduled. Phyllis Coffman, ALEJANDRO [address] [facility], [place], [address], [facility] [[email or web address] - NT [facility] & [place] 11/14/2024 09:04:08
[2024-12-21 08:43] VITALS: BP 135/77; PULSE 85; RESP 19; TEMP 36.5; O2SAT 95; BMI 35.1
[2024-12-21] MEDS: IVABRADINE HCL 7.5MG TABLET PO (09:02)
[2024-12-21] MEDS: METOPROLOL TARTRATE 50MG TABLET PO ×2 (09:03→10:03)
[2024-12-21 09:10] LABS: Chloride 102 mmol/L (98-107); Sodium 138 mmol/L (136-145)
[2024-12-21 09:11] LABS: Potassium 3.7 mmoL/L (3.5-5.1)
[2024-12-21 09:13] LABS: Blood Urea Nitrogen 9 mg/dl (9-20); Creatinine Clearance Estimated 100 mL/min (50-200); Estimated Glomerular Filt Rate 66 ml/min (>60); GFR (African American) 80 ML/MIN (>60)
[2024-12-21 09:14] LABS: Anion Gap 9.7 mEq/L (5-15); Calcium 9.2 mg/dl (8.4-10.2); Carbon Dioxide 30 mmol/L (22.0-30.0); Glucose 127 mg/dl (74-100)
--- NOTE | 2024-12-21 10:00 | CT_ITS ---
APPROVED REPORT School Childcare Attendant: CLINICAL INDICATION Chest Pain TECHNIQUE Image Acquisition: A 128 slice MDCT scanner ([employer] Biomedical[employer] View) was used for data acquisition. A noncontrast coronary calcium scan was performed. A CT attenuation threshold of 130 Hounsfield units (HU) was used for the detection of calcium in contiguous voxels of 1 sq mm in area to be counted as individual lesions. Bolus tracking in the ascending aorta with a threshold of 180 HU was performed. Immediately afterwards, ECG synchronized cardiac CT was then performed from the cardiac base to apex using retrospective gating with ECG tube current modulation. A total of 85 mL of Isovue 370 mg/mL contrast medium was administered at 5 mL/sec followed by a saline flush using a biphasic injection protocol. A tube voltage of 120 KVp was used. The average heart rate at the time of acquisition was 58 bpm and regular. Image Reconstruction Transaxial images were reconstructed at 0.67 mm slide thickness. Data was reviewed interactively on an advanced workstation capable of 2 and 3-dimensional displays in all conventional reconstruction formats, including multiplanar reformations, maximum intensity projections, curved multiplanar reformations, and volume rendered reconstructions. When applicable, selected routine images describing the relevant coronary anatomy and pathology were saved and sent to PACS. Complications None Technical Quality Overall image quality was good. Coronary artery opacification was adequate. Total DLP (Dose-Length Product) is 1365.9 mGy-cm. The reported value represents the total of one or more individual components during the CT acquisition of this date and at this time, and as such, the same value may appear in more than one CT report depending on the interpreting/reporting physicians. COMPARISON None FINDINGS CT Coronary Calcium Scoring LMA (Left Main Artery) = 0 LAD (Left Anterior Descending) = 21 LCX (Left Coronary Circumflex) = 0 RCA (Right Coronary Artery) = 0 Total Calcium Score = 21 using the AJ-130 method. The observed calcium score of 21is at 51st percentile for subjects of the same age, sex, and race/ethnicity. The interpretation of the calcium heart score is based on the following continuum*: 0 = no calcified plaque detected (risk of coronary artery disease is very low ??? less than 5%) 1-10 = calcium detected in extremely minimal levels (risk of coronary diseases is still low ??? less than 10%) 11-100 = mild levels of plaque detected with certainty (mild or minimal narrowing of heart arteries is likely) 101-400 = definite,at least moderate levels of plaque detected (relatively high risk of a heart attack within 3-5 years) >401-999 = extensive levels of plaque detected (high risk of heart attack, high levels of vascular disease are present, high likelihood of at least one significant coronary narrowing) *The calcium heart score quantifies the burden of coronary calcification/plaque in the coronary arteries. The calcium heart score is not able to evaluate the presence or burden of non-calcified (i.e. soft) plaque. There is no identifiable calcification in the aortic valve, mitral annulus or mitral valve, pericardium, or myocardium. Coronary CT Angiography The coronary arterial system is right dominant. Quantitative Stenosis Grading: Left Main (LM): The left main originates normally from the left sinus of Valsalva. The LM bifurcates into the left anterior descending artery and left circumflex artery. The LM is patent with no evidence of atherosclerosis. Left Anterior Descending (LAD) and Diagonal Branches: The LAD gives off 3 diagonal branch(es). There is calcified/noncalcified plaque in the proximal LAD segment with up to 25-50% luminal stenosis. There is no evidence of LAD-myocardial bridge. Left Circumflex (LCX) and Obtuse Marginals (OM): The LCX gives off 1 Obtuse Marginal (OM) branch(es). The LCX and its branches are patent with no evidence of atherosclerosis. Right Coronary Artery (RCA): The RCA originates normally from the right sinus of Valsalva. The RCA gives off a posterior descending artery (PDA) and posterolateral (PL) branches. The RCA and its branches are patent with no evidence of atherosclerosis. Non-Coronary Cardiac Findings: Analysis of the left ventricular (LV) structure and function was performed after 3-D reconstruction of the LV from axial images, with user-corrected automatic contouring for assessment of LV volumes and user-defined reconstruction from oblique planes for measurement of 3-D cardiac structure and function. -The left ventricle systolic function is normal. -There is no left atrial appendage filling defect. Two right pulmonary veins and two left pulmonary veins drain normally into the left atrium. -No pericardial thickening or calcification. -Central and branch pulmonary arteries in the qdvzn-hz-ylea are unremarkable. -Thoracic aorta within the visualized thoracic aortic-branches in the [id number]-zn-iasw is unremarkable. Extracardiac Structures No significant extra-cardiac findings. Note, however, that this study is focused on the cardiac findings. IMPRESSION -Presence of coronary calcification with an Agatston score = 21 using the AJ-130 method. -The observed calcium score of 21 is at 51st percentile for subjects of the same age, sex, and race/ethnicity. -Mild non-obstructive atherosclerotic plaque in the proximal LAD, with no evidence of significant flow-limiting atherosclerosis of the coronary arteries. -CAD-RADS 2. Management recommendations per ACC/AHA guidelines*, as clinically appropriate. *Recommendations: CAD RADS 0: Reassurance. Consider non-atherosclerotic causes of chest pain. CAD RADS 1: Consider non-atherosclerotic causes of chest pain. Consider preventive therapy and risk factor modification. CAD RADS 2: Consider non-atherosclerotic causes of chest pain. Consider preventive therapy and risk factor modification, particularly for patients with nonobstructive plaque in multiple segments. CAD RADS 3: Consider further functional testing. Consider symptom-guided anti-ischemic and preventive pharmacotherapy as well as risk factor modification per published guideline statements. CAD RADS 4A: Consider further functional testing or invasive coronary angiography with revascularization per published guideline statements. Consider symptom-guided anti-ischemic and preventive pharmacotherapy as well as risk factor modification per published guideline statements. CAD RADS 4B: Invasive coronary angiography recommended with revascularization per published guideline statements. Consider symptom-guided anti-ischemic and preventive pharmacotherapy as well as risk factor modification per published guideline statements. CAD RADS 5: Consider invasive angiography and/or viability assessment with revascularization per published guideline statements. Consider symptom-guided anti-ischemic and preventive pharmacotherapy as well as risk factor modification per published guideline statements. CRITICAL RESULT None COMMUNICATION Per this written report The coronary and cardiac findings of this CCTA were reviewed, reported, and signed by Gomez Sutton MD (Health Occupations Teacher) Conclusion Electronically signed by : Val Sutton MD 12/21/2024 13:09:40
[2024-12-21 10:05] VITALS: BP 116/69; PULSE 73; RESP 17; O2SAT 92
[2024-12-21 10:57] VITALS: BP 147/86; PULSE 62; RESP 18; O2SAT 92
[2024-12-21] MEDS: NITROGLYCERIN 0.4MG SL TABLET SL (10:57)
[2024-12-21 10:58] VITALS: BP 127/67; PULSE 60; RESP 19; O2SAT 94
[2024-12-21] MEDS: METOPROLOL TARTRATE 5MG/5ML VIAL 5 MG IV (11:05)
[2024-12-21 11:10] VITALS: BP 106/70; PULSE 72; RESP 20; O2SAT 93
[2024-12-21] MEDS: 0.9 % SODIUM CHLORIDE 50 ML VIAL IV (11:13)
[2024-12-21] MEDS: IOPAMIDOL-370 (76%);100ML BOTTLE 85 ML IV (11:13)
[2024-12-21] MEDS: SODIUM CHLORIDE 0.9% 10ML SYR (RAD ONLY) 10 ML IV (11:13)
[2024-12-21 11:18] VITALS: BP 116/70; PULSE 69; RESP 20; O2SAT 93
== END 2024-12-21 11:20 | disposition home or self-care (01) ==
LOC: RT 07:56 → RAD 08:29
PROVIDERS: PCP Nurse Practitioner Family; Visit Provider Nurse Practitioner Family
DX: R06.02 Shortness of breath (principal); I48.0 Paroxysmal atrial fibrillation; I10 Essential (primary) hypertension
CPT/HCPCS: 75574; 80048; 93306; Q9967